=== PATIENT | male | born 1960 | race Caucasian/White ===

== ENCOUNTER 2020-08-09 17:53 | Emergency (ER) | payer BC, SELFPAY ==
[2020-08-09 17:53] VITALS: BP 166/77; PULSE 74; RESP 17; TEMP 36.6; O2SAT 96; BMI 16.4
[2020-08-09 18:22] VITALS: BP 138/89; PULSE 74; O2SAT 97
--- NOTE | 2020-08-09 18:24 | CT_ITS ---
PROCEDURE: CT HEAD/BRAIN WO CON CLINICAL INDICATION: Lac Head injury with headache/pain, contusion, abrasion or hematoma COMPARISON: No exams were available for comparison TECHNIQUE: Axial images obtained. All CT scans at the facility use one or more dose reduction, viz: automated exposure control, ma/kV adjustment per patient size (including targeted exams where dose is matched to indication, i.e. head), or iterative reconstruction technique. FINDINGS: No midline shift, mass effect, intracranial hemorrhage, hydrocephalus, or extra-axial fluid collection is evident. There is generalized atrophy with hypoattenuation of the periventricular white matter consistent with microangiopathic changes. The calvarium has an unremarkable appearance. Soft tissue swelling noted in the frontal region of the scalp . No mastoid effusion. There is an air-fluid level in the left maxillary sinus.. There is mucosal thickening of the maxillary sinus on the left and of the ethmoid sinuses centrally. IMPRESSION: 1. No acute intracranial findings. 2. Right frontal scalp hematoma. 3. Air-fluid level left maxillary sinus age and etiology indeterminate Dictated by: Eduardo Lopez MD 08/10/2020 09:02 Eduardo Lopez MD in [place] 08/10/2020 09:02
--- NOTE | 2020-08-09 18:28 | PC.NURSE ---
Pt's comes to desk and wants to know what is taking so long that they had been here for over an hour . At this time the pt had been registered for 28 mins. Explained to pt's that there were other people in here. Pt had stated upon arrival that he just needed stitched up. Explained that having his head scanned was ideal due to pt being on blood thinners. Pt's says go ahead and do it and we will just stay half the night and walks off.
--- NOTE | 2020-08-09 18:38 | HMH.EDGENADL ---
ED Disposition Clinical Impression: Scalp laceration Qualifiers: Encounter type: initial encounter Qualified Code(s): S01.01XA - Laceration without foreign body of scalp, initial encounter Disposition: Home, Self-Care Condition on Discharge: Good Instructions: DI for Laceration Repair -- [place], DI for Closed Head Injury Additional Instructions: Additional instructions for SCALP LACERATION: Clean the wound daily with soap and water. You may shower and shampoo your hair. Avoid submerging the wound. No swimming.. Apply a thin film of antibiotic ointment such as neosporin, polysporin, or triple antibiotic daily after showering. Be careful when combing or brushing hair so that you so not snag the dahiana with a comb or brush. See your primary care physician or return to the [facility] in 7 days for staple removal. The [facility] is open 9 AM to 9 PM, 7 days a week. Return if any signs of infection including increasing pain, pus drainage, swelling, redness, red streaks, or fever. Additional instructions for HEAD INJURY: See your physician as soon as possible for further evaluation. Return immediately if severe headache, vomiting, problems with vision or speech, numbness or weakness of the extremities, or severe neck pain. Referrals: Riley Moreno [Primary Care Provider] - - Critical Care Critical Care Time: No Attestation: On 08/09/20, the high probability of a clinically significant, sudden or life threatening deterioration of the following system(s) required my full and direct attention, intervention and personal management. The time I documented below is in addition to time spent performing reported procedures but includes the following listed in this critical care notation. Medical Decision Making - Yovani Inquiry Pt receiving controlled substance: No Vital Signs: 08/09/20 17:53 08/09/20 18:22 Temperature 97.9 F Temperature Source Oral Pulse Rate [Right Brachial] 74 74 Respiratory Rate 17 Blood Pressure [Right Arm] 166/77 H 138/89 Blood Pressure Mean [Right Arm] 106 105 Blood Pressure Source [Right Arm] Automatic Cuff Automatic Cuff Blood Pressure Position [Right Arm] Sitting Sitting 02 Sat by Pulse Oximetry 96 97 Oxygen Delivery Method Room Air Room Air Orders (Tests/Meds): ED MEDICATIONS Discontinued Medications Generic Name Dose Route Start Last Admin Trade Name Freq PRN Reason Stop Dose Admin Tetanus/Reduced Diphtheria/Acell Pertussis 0.5 ml 08/09/20 19:34 08/09/20 19:36 Tet/Diphth/Pert-Adult 0.5ml Syringe IM 08/09/20 19:35 0.5 ml .ONCE ONE Administration ORDERS Category Date Time Status CT head/brain wo con Stat Cat Scan 08/09/20 18:24 Taken - CT Data CT Scan: Head Time Received: 19:05 ([facility] fax) ED CT Reviewed: Yes: I have viewed the radiologist's interpretation Findings Narrative: Right periorbital soft tissue swelling No hemorrhage mass-effect or midline shift Acute air-fluid level noted within the left maxillary sinus (The patient has no facial trauma or sinus symptoms - JR) General Adult HPI - General Chief complaint: Wound/Laceration Stated complaint: Head laceration Time Seen by Provider: 08/09/20 18:38 Mode of Arrival: Ambulatory Limitations: No Limitations Description of Symptoms (Recalled from ER Triage Doc. by RN): Patient reports he walked into the corner of the bucket of a front end load and cut his head. Patient denies any loss of conciousness. 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 He is on aspirin and Plavix. No loss of consciousness. No headache or neck pain. No visual disturbance or vomiting. No other injuries. Uncertain when his last tetanus shot was. - Related Data Home Medications Medication Instructions Recorded Confirmed Clopidogrel Bisulfate [Plavix] 75
[2020-08-09 19:55] VITALS: BP 129/78; PULSE 72; RESP 18; TEMP 36.7
== END 2020-08-09 19:45 | disposition home or self-care (01) ==
PROVIDERS: Emergency Provider Emergency Medicine; PCP Family Medicine
DX: S01.01XA Laceration without foreign body of scalp, initial encounter (principal); W22.09XA Striking against other stationary object, initial encounter; I25.10 Atherosclerotic heart disease of native coronary artery without angina pectoris; I25.2 Old myocardial infarction; Z79.899 Other long term (current) drug therapy; Z23 Encounter for immunization
CPT/HCPCS: 12001; 70450; 90471; 90715; 99282

== ENCOUNTER 2020-08-17 14:26 | Emergency (ER) | payer BC, SELFPAY ==
[2020-08-17 14:32] VITALS: BP 140/88; PULSE 61; RESP 18; TEMP 36.7; O2SAT 96; BMI 16.6
[2020-08-17 14:35] VITALS: BP 140/88; PULSE 61; RESP 18; TEMP 36.7; O2SAT 96
== END 2020-08-17 14:36 | disposition home or self-care (01) ==
PROVIDERS: Emergency Provider Nurse Practitioner; PCP Family Medicine
DX: S01.01XD Laceration without foreign body of scalp, subsequent encounter (principal)

== ENCOUNTER 2021-02-07 21:39 | Inpatient (IN) | payer MEDICARE, BC, SELFPAY ==
[2021-02-07 21:49] VITALS: BMI 16.6
--- NOTE | 2021-02-07 21:49 | XR_ITS ---
PROCEDURE INFORMATION: Exam: XR Chest Exam date and time: 02/07/2021 9:49 PM Age: 60 years old Clinical indication: Chest pressure; Prior surgery; Surgery date: 6+ months; Patient HX: Open heart SX, chest pain, elevated troponin TECHNIQUE: Imaging protocol: XR of the chest. Views: 2 views. COMPARISON: CR CXR CHEST(2 VIEWS-NOT PORTABLE) 05/01/2014 12:56 PM FINDINGS: Lungs: Stable diffuse increased interstitial markings without associated focal consolidation or vascular congestion. Pleural spaces: Bilateral pleural effusions greater on the right than the left demonstrated. Heart/Mediastinum: Unremarkable. No cardiomegaly. Bones/joints: Stable degenerative osseous changes IMPRESSION: Bilateral pleural effusions greater on the right than the left demonstrated.
--- NOTE | 2021-02-07 21:49 | ECG_ITS ---
APPROVED REPORT Exam: Resting ECG HR:104 bpm ECG Measurements Heart Rate 104 AXES OK 136 P 77 QRSd 98 QRS 88 QT 392 T -32 QTc 515 Conclusion Sinus tachycardia Left ventricular hypertrophy with repolarization abnormality Abnormal ECG Electronically signed by : Viraj Damon, 02/08/2021 17:44:17
[2021-02-07 22:01] VITALS: BP 132/94; PULSE 67; RESP 26; TEMP 37.1; O2SAT 78; BMI 16.6
[2021-02-07 22:01] LABS: Basophils % 0.2 % (0.1-2.0); Hematocrit 36.7 % (42.0-52.0); Lymphocytes # 1.1 K/mm3 (0.7-4.5); Lymphocytes % 5.2 % (10-50); Mean Corpuscular HGB Conc 29.9 g/dL (31.8-35.4); Mean Corpuscular Hemoglobin 26.7 pg (27.0-31.2); Mean Corpuscular Volume 89.3 fl (80-94); Mean Platelet Volume 7.5 fl (7.4-10.4); Monocytes # 1.2 K/mm3 (0.1-1.0); Monocytes % 5.6 % (1.7-9.3); Neutrophils # 18.6 K/mm3 (1.8-7.8); Platelet Count 589 K/mm3 (142-424); Red Blood Count 4.11 M/mm3 (4.60-6.20); Red Cell Distribution Width 15.8 % (11.5-17.5)
[2021-02-07 22:05] LABS: White Blood Count 20.9 K/mm3 (4.8-10.8)
[2021-02-07 22:07] LABS: MANUAL DIFFERENTIAL MANUAL DIFFERENTIAL (MANUAL DIFF)
[2021-02-07 22:11] LABS: Microscopic, Urine URINE MICROSCOPIC (MICROSCOPIC)
[2021-02-07 22:12] LABS: Anion Gap 24.7 mEq/L (5-15); Blood Urea Nitrogen 31 mg/dl (9-20); Calcium 8.7 mg/dl (8.4-10.2); Carbon Dioxide 25 mmol/L (22.0-30.0); Chloride 87 mmol/L (98-107); Creatinine Clearance Estimated 25 mL/min (50-200); Estimated Glomerular Filt Rate 32 ml/min (>60); GFR (African American) 39 ML/MIN (>60); Glucose 85 mg/dl (74-100); Potassium 4.7 mmoL/L (3.5-5.1); Sodium 132 mmol/L (136-145)
[2021-02-07 22:14] LABS: Creatine Kinase 246 U/L (55-170)
[2021-02-07 22:14] LABS: Appearance,Urine SL CLOUDY (Clear); Blood, Urine 2+ (Negative); Color,Urine YELLOW (Yellow); Glucose,Urine (UA) Negative (Negative); Ketones,Urine TRACE (Negative); Leukocyte Esterase,Urine Negative (Negative); Nitrate,Urine Negative (Negative); Protein,Urine 2+ (Negative); Specific Gravity, Urine >= 1.030 (1.005-1.030)
[2021-02-07 22:16] LABS: Ethyl Alcohol < 10 mg/dl (0-10)
[2021-02-07 22:16] LABS: Bilirubin,Urine Negative (Negative)
--- NOTE | 2021-02-07 22:16 | XR_ITS ---
PROCEDURE INFORMATION: Exam: XR Pelvis Exam date and time: 02/07/2021 10:16 PM Age: 60 years old Clinical indication: Injury or trauma; Fall; Blunt trauma (contusions or hematomas); Does not apply; Pelvic region TECHNIQUE: Imaging protocol: XR pelvis. Views: 1 or 2 view. COMPARISON: No relevant prior studies available. FINDINGS: Tubes, catheters and devices: A [place] catheter is demonstrated. Bones/joints: No evidence of acute fracture or dislocation. Soft tissues: Unremarkable. Intraperitoneal space: Nonspecific pelvic calcifications. Vasculature: Mild atherosclerotic vascular changes. IMPRESSION: No evidence of acute fracture or dislocation.
--- NOTE | 2021-02-07 22:16 | HMH.EDWEAK ---
ED Disposition Clinical Impression: Non-STEMI (non-ST elevated myocardial infarction), Tobacco use, Low body mass index (BMI), IVA (acute kidney injury), Transaminasemia, SIRS (systemic inflammatory response syndrome) Hypothyroidism Qualifiers: Hypothyroidism type: acquired Qualified Code(s): E03.9 - Hypothyroidism, unspecified Disposition: Admitted As Inpatient Condition on Discharge: Serious - Critical Care Critical Care Time: No Attestation: On 02/07/21, the high probability of a clinically significant, sudden or life threatening deterioration of the following system(s) required my full and direct attention, intervention and personal management. The time I documented below is in addition to time spent performing reported procedures but includes the following listed in this critical care notation. Medical Decision Making - Medical Records Medical records reviewed: Yes: I reviewed the patient's medical records. - Yovani Inquiry Pt receiving controlled substance: No Vital Signs: 02/07/21 22:01 02/07/21 23:00 02/07/21 23:15 Temperature 98.7 F Temperature Source Oral Pulse Rate 98 H 100 H Pulse Rate [Right] 67 Respiratory Rate 26 H 16 Blood Pressure 142/85 H Blood Pressure [Right Arm] 132/94 H Blood Pressure Mean 104 Blood Pressure Mean [Right Arm] 106 Blood Pressure Source [Right Arm] Automatic Cuff Blood Pressure Position [Right Arm] Sitting 02 Sat by Pulse Oximetry 78 L 97 84 L Oxygen Delivery Method Room Air 02/07/21 23:30 Temperature Temperature Source Pulse Rate Pulse Rate [Right] Respiratory Rate 18 Blood Pressure 131/87 Blood Pressure [Right Arm] Blood Pressure Mean 101 Blood Pressure Mean [Right Arm] Blood Pressure Source [Right Arm] Blood Pressure Position [Right Arm] 02 Sat by Pulse Oximetry 97 Oxygen Delivery Method - Lab Data Lab results reviewed: Yes: I reviewed the patient's lab results. Lab Results 02/07/21 21:15: Plasma/Serum Alcohol < 10 02/07/21 21:15: Total Creatine Kinase 246 H 02/07/21 21:50: WBC 20.9 H*, RBC 4.11 L, Hgb 11.0 L, Hct 36.7 L, MCV 89.3, MCH 26.7 L, MCHC 29.9 L, RDW 15.8, Plt Count 589 H, MPV 7.5, Neut % (Auto) 89.0 H, Lymph % (Auto) 5.2 L, Cameron % (Auto) 5.6, Eos % (Auto) 0.0 L, Baso % (Auto) 0.2, Neut # (Auto) 18.6 H, Lymph # (Auto) 1.1, Cameron # (Auto) 1.2 H, Eos # (Auto) 0.0, Baso # (Auto) 0.0, Total Counted 100, Neutrophils % (Manual) 88 H, Lymphocytes % (Manual) 6 L, Monocytes % (Manual) 6, Platelet Estimate Slight increase, Hypochromasia 1+, Anisocytosis 1+ 02/07/21 21:50: Sodium 132 L, Potassium 4.7, Chloride 87 L, Carbon Dioxide 25, Anion Gap 24.7 H, BUN 31 H, Creatinine 2.10 H, Estimated Creat Clear 25, Estimated GFR 32 L, Est GFR ( Amer) 39 L, Glucose 85, Calcium 8.7, Troponin I 6.54 H 02/07/21 21:50: PT 17.5 H, INR 1.53 H, APTT 25.1 02/07/21 21:55: Total Bilirubin 1.2, Direct Bilirubin 0.7 H, Conjugated Bilirubin 0.0, Indirect Bilirubin 0.5, Unconjugated Bilirubin 0.5, AST 1370 H*, ALT 598 H*, Alkaline Phosphatase 214 H, Total Protein 6.8, Albumin 4.0 02/07/21 21:55: Thyroxine (T4) 8.6, Salicylates < 1.0 L, Acetaminophen < 10 L 02/07/21 22:01: Specimen Source R/r, O2 % R/a, ABG pH 7.46 H, ABG pCO2 30.9 L, ABG pO2 79.5 L, ABG HCO3 21.6 L, ABG Total CO2 22.6 L, ABG O2 Saturation 96, ABG Base Excess -2.1, Eduardo Test Y 02/07/21 22:05: Urine Opiates Screen Negative, Urine Methadone Screen Negative, Ur Barbituates Screen Negative, Ur Phencyclidine Scrn Negative, Ur Amphetamines Screen Negative, U Benzodiazepines Scrn Negative, Urine Cocaine Screen Negative, U Marijuana (THC) Screen Negative 02/07/21 22:05: Urine Color Yellow, Urine Appearance Sl cloudy, Urine pH 5.0, Ur Specific [place] >= 1.030, Urine Protein 2+, Urine Glucose (UA) Negative, Urine Ketones Trace, Urine Blood 2+, Urine Nitrate Negative, Urine Bilirubin Negative, Urine Urobilinogen 1.0, Ur Leukocyte Esterase Negative, Urine RBC Occasional, Urine WBC 5-10, Ur Squamous Epith Ce
[2021-02-07 22:17] LABS: ABG Base Excess -2.1 mmol/L (-2.4-2.3); ABG HCO3 21.6 mmhg (22.0-26.0); ABG Oxygen Saturation 96 % (90-100); ABG PCO2 30.9 mmhg (35.0-45.0); ABG PH 7.46 mmol/L (7.35-7.45); ABG PO2 79.5 mmhg (80-100); ABG TCO2 22.6 mmhg (23-27); Oxygen R/A %
[2021-02-07 22:18] LABS: Allen's Test Y; Source R/R
[2021-02-07 22:25] LABS: Amphetamine/Metha Screen,Urine Negative ng/ml (<1000); Benzodiazepines Screen,Urine Negative ng/ml (<200)
[2021-02-07 22:26] LABS: Barbiturates Screen,Urine Negative ng/ml (<200)
[2021-02-07 22:27] LABS: Cannabinoid Screen,Urine Negative ng/ml (<50); Cocaine Screen,Urine Negative ng/ml (<300)
[2021-02-07 22:28] LABS: Methadone Screen,Urine Negative ng/ml (<300)
[2021-02-07 22:29] LABS: Adenovirus,PCR Not Detected (NotDetected); Bordetella Pertussis Not Detected (NotDetected); Coronavirus 19, PCR Not Detected (NotDetected); Coronavirus 229E Not Detected (NotDetected); Coronavirus NL63 Not Detected (NotDetected); Coronavirus OC43 Not Detected (NotDetected); Coronovirus HKU1,PCR Not Detected (NotDetected); Human Metapneumovirus Not Detected (NotDetected); Influenza A, PCR Not Detected (NotDetected); Influenza AH1, 2009 Not Detected (NotDetected); Influenza AH1, PCR Not Detected (NotDetected); Influenza AH3,PCR Not Detected (NotDetected); Influenza B, PCR Not Detected (NotDetected); Parainfluenza 1, PCR Not Detected (NotDetected); Parainfluenza 2, PCR Not Detected (NotDetected); Parainfluenza 3, PCR Not Detected (NotDetected); Parainfluenza 4, PCR Not Detected (NotDetected); Respiratory Syncytial Virus Not Detected (NotDetected); Rhinovirus/Enterovirus Not Detected (NotDetected)
[2021-02-07 22:29] LABS: Opiate Screen,Urine Negative ng/ml (<300); Phencyclidine Screen,Urine Negative ng/ml (<25)
--- NOTE | 2021-02-07 22:29 | PC.NURSE ---
patient is refusing radiology studies. irma yancey rn spoke to patient. patient will sign AMA form.
[2021-02-07 22:30] LABS: Chlamydophila Pneumoniae, PCR Not Detected (NotDetected); Mycoplasma Pneumoniae, PCR Not Detected (NotDetected)
--- NOTE | 2021-02-07 22:30 | PC.NURSE ---
I spoke with pt and he and his refuse any x-rays or CT's, the and pt states they have had all the x-rays he needs.
[2021-02-07 22:31] LABS: Troponin I 6.54 ng/ml (0.00-0.034)
[2021-02-07 22:36] LABS: Alkaline Phosphatase 214 U/L (38-126); Bilirubin,Direct 0.7 mg/dl (0.0-0.4); Bilirubin,Indirect 0.5 mg/dL (0.0-0.9); Bilirubin,Total 1.2 mg/dl (0.2-1.3); Bilirubin,Unconjugated 0.5 mg/dL (0.0-1.1); Total Protein,Serum 6.8 g/dl (6.3-8.2)
[2021-02-07 22:41] LABS: Amorphous Sediment,Urine 1+ /lpf; Bacteria,Urine 2+ /lpf; RBC,Urine Occasional #/hpf (0-3)
[2021-02-07 22:42] LABS: Alanine Aminotransferase 598 U/L (12-78)
--- NOTE | 2021-02-07 22:42 | PC.NURSE ---
critical troponin came back. sydney grajeda and dr. reddy spoke to the patient and family. they agreed to radiology studies and to be admitted for consult with dr. rain in the morning. rad at bedside at this time.
[2021-02-07 22:43] LABS: Aspartate Amino Transferase 1370 U/L (17-59)
[2021-02-07 22:50] LABS: Lactic Acid 10.4 mmol/L (0.7-2.1)
[2021-02-07 23:00] VITALS: BP 142/85; PULSE 98; O2SAT 97
[2021-02-07 23:01] LABS: Lymphocytes % 6 % (10-50); Monocytes % 6 % (2-9); Neutrophils % 88 % (42-76); Platelet Estimate Slight Increase; Total Cells Counted 100
[2021-02-07 23:03] LABS: Anisocytosis 1+; Hypochromasia 1+
[2021-02-07 23:15] VITALS: PULSE 100; RESP 16; O2SAT 84
--- NOTE | 2021-02-07 23:17 | PC.NURSE ---
I spoke with the pt and his regarding his high Troponin, they agreed to X-rays, but continues to refuse the CT's
--- NOTE | 2021-02-07 23:28 | PC.NURSE ---
speaking to dr. rain at this time.
[2021-02-07 23:30] VITALS: BP 131/87; RESP 16; RESP 18; O2SAT 97
--- NOTE | 2021-02-07 23:46 | PC.NURSE ---
Dr Rivera speaking with Dr Damon
[2021-02-07 23:47] LABS: Activated Partial Thrombo Time 25.1 seconds (22.8-30.6); INR 1.53 (0.9-1.1); Prothrombin Time 17.5 seconds (10.1-12.5)
[2021-02-07 23:48] LABS: Acetaminophen < 10 ug/ml (10-30); Salicylate < 1.0 mg/dL (2.0-20.0)
[2021-02-08] VITALS (22 sets, daily range): BP systolic 118–152; BP diastolic 59–105; PULSE 78–94; RESP 16–23; TEMP 36.6–37.2; O2SAT 91–100; BMI 18.6
--- NOTE | 2021-02-08 | IR_ITS ---
APPROVED REPORT Patient Location: Inpatient PROCEDURES Right heart catheterization Left heart catheterization Left ventriculogram Selective coronary angiogram Left internal mammary angiography Selective engagement of saphenous vein graft to the circumflex artery Selective engage in the saphenous vein graft to the right coronary Bilateral selective renal angiography INDICATION Acute non-ST elevation myocardial infarction, Bilateral pleural effusions, Systolic congestive heart failure, Coronary artery disease with history of coronary bypass surgery x2, Chronic renal failure creatinine 2.1, Suspect renal artery stenosis Informed consent was obtained prior to the procedure. COMPLICATIONS NONE Estimated Blood Loss: LESS THAN 10 ML TECHNIQUE One percent lidocaine used to anesthetize the right groin. The right femoral artery was accessed via the Seldinger technique and a 5 [place] sheath was placed in the right femoral artery. A JL 4, JR4 catheter were used to perform left heart catheterization, left ventriculogram selective coronary angiography as well as selective engagement of the 2 vein grafts and the left internal mammary artery. Because of the severe diffuse coronary disease and the elevated creatinine the JR4 catheter was used to selectively intubate each renal artery. 1% lidocaine was used anesthetize the right groin and the right femoral vein was accessed via the Salinger technique. A 7 [place] sheath was placed in the right femoral vein. A [place] catheter was used to perform right heart catheterization with saturations obtained in the right atrium and pulmonary artery. At the end the procedure the apparatus was removed the patient transferred to the postop holding in stable condition for sheath removal ANGIOGRAPHIC RESULTS The left main artery Normal The left anterior descending artery Ostially occluded The circumflex artery Is nondominant and has no obtuse marginal arteries. A large Kugel collateral collateralizes the distal dominant right coronary artery The right coronary artery Dominant and ostially occluded The ROWE ventriculogram reveals Severe left ventricular dilatation with severe left ventricular dysfunction estimated at 20%. The inferior wall is akinetic the anterior wall is hypokinetic The left ventricular end-diastolic pressure 10 to 15 mmHg The left internal mammary artery is a large graft which supplies the LAD with a large T graft supplying a diagonal artery. The saphenous vein graft to the right coronary artery is ostially occluded The saphenous vein graft to the circumflex artery is ostially occluded Right atrial pressure has a large Y descent with a mean pressure of 15 Pulmonary artery pressure 35/25 Pulmonary occlusion pressure 16 Right atrial saturation 40% Pulmonary artery saturation 42% The right renal artery is singular with an ostial 10 to 20% stenosis The left renal artery is ostially occluded IMPRESSION Coronary disease as described above Left ventricular dysfunction as described above Mildly elevated pulmonary artery pressures which is actually euvolemic for the degree of patient's LV dysfunction Chronically occluded left renal artery as described above PLAN 1. Medical management for coronary disease 2. Patient may be a candidate for an AICD. 3. Recommend abstinence from alcohol 4. Standard therapy for systolic heart failure 5. Consideration for LifeVest although patient may not be a candidate due to purported alcohol abuse Electronically signed by : Lonnie Suero, 02/08/2021 15:03:53
[2021-02-08 00:04] LABS: T4 (Thyroxine) 8.6 ug/dl (5.53-11.0)
[2021-02-08 00:18] LABS: Thyroid Stimulating Hormone 9.13 uIU/mL (0.465-4.68)
--- NOTE | 2021-02-08 01:18 | PC.NURSE ---
patient up to floor via wheelchair.
[2021-02-08 02:24] LABS: Reflex Lactic Add Lactic Reflex
--- NOTE | 2021-02-08 02:45 | PC.NURSE ---
notified of critical lab values troponin 8.79 and lactic 8.1. No new orders.
[2021-02-08 02:47] LABS: Lactic Acid Follow Up (RFLX 1) 8.1 mmol/L (0.7-2.1)
[2021-02-08 02:47] LABS: Troponin I 8.79 ng/ml (0.00-0.034)
--- NOTE | 2021-02-08 03:34 | PC.NURSE ---
Pt is currently resting in bed. No c/o chest pain. Pt is currently NPO and has had a shower. VSS. Pt is NSR on telemetry. No concerns noted at this time. Will continue to monitor.
[2021-02-08 04:34] LABS: Reflex Lactic (2 hrs) Add Lactic Reflex
[2021-02-08 05:05] LABS: Lactic Acid Follow up (RFLX 2) 4.4 mmol/L (0.7-2.1)
[2021-02-08 06:08] LABS: Albumin Level 3.1 g/dl (3.5-5.0); Albumin/Globulin Ratio 1.3 (1.1-1.8); Alkaline Phosphatase 164 U/L (38-126); Anion Gap 11.4 mEq/L (5-15); Bilirubin,Total 1.1 mg/dl (0.2-1.3); Blood Urea Nitrogen 39 mg/dl (9-20); Carbon Dioxide 29 mmol/L (22.0-30.0); Chloride 92 mmol/L (98-107); Chol/HDL Ratio 3.1 (1-3.5); Cholesterol 117 mg/dl (140-200); Creatinine Clearance Estimated 30 mL/min (50-200); Estimated Glomerular Filt Rate 34 ml/min (>60); GFR (African American) 41 ML/MIN (>60); Globulin 2.4 g/dL (1.3-3.2); Glucose 134 mg/dl (74-100); HDL Cholesterol 38 mg/dl (40-60); Magnesium 2.1 mg/dl (1.6-2.3); Potassium 4.4 mmoL/L (3.5-5.1); Sodium 128 mmol/L (136-145); Total Protein,Serum 5.5 g/dl (6.3-8.2); Triglycerides 112 mg/dl (30-150); VLDL Cholesterol 22 mg/dL (0-40)
[2021-02-08 06:15] LABS: Alanine Aminotransferase 1034 U/L (12-78)
[2021-02-08 06:18] LABS: Direct LDL Cholesterol 51.41 mg/dL (100-129)
--- NOTE | 2021-02-08 08:00 | CA_ITS ---
APPROVED REPORT EXAM: Comprehensive 2D, Doppler, and color-flow Echocardiogram Organizational Research Consultant: Amy Mcbride CRT Ht: 5 ft 7 in Wt: 106lbs BSA: 1.54 BP: 131/87 mmHg Indications: CAD, smoking, CABG x 2, stents, smoker, alcohol, skin ca, chemo/radation 2D Dimensions LVOT 2.04 cm (M/F) 1.5-2.5 LA Volume 60.60 mL LA Volume Index 39.407935 mL/m2 (M/F) 16-34 M-Mode Dimensions RVDd 3.09 cm (0.9-2.6) LA Diam 4.13 cm (1.9-4.0) LVDd 5.38 cm (3.5-5.7) Ao Diam 4.38 cm (2.0-3.7) LVDs 4.88 cm (3.5-5.7) IVSd 1.72 cm (0.6-1.1) PWd 0.64 cm (0.6-1.1) EF (Teich) 20.30% FS 9.30% EDV (Teich) 140.10 mL TAPSE 1.45 (<1.7) ESV (Teich) 111.70 mL LV Diastology E Decel Time 150.00 (160-240 msec) E/A Ratio 1.09 MED E' 3.50 (< 7 cm/sec) MED A' 4.90 cm/s E'/MED E' Ratio 18.31 (>14) LAT E' 4.60 (<10 cm/sec) LAT A' 6.50 cm/s E/LAT E' Ratio 13.93 (>14) Aortic Valve AI PHT 427.00 ms AO Peak GR. 6.70 mmHg Mitral Valve MV E Max Roberto. 64.00 (40-130 cm/s) MV A Velocity 59.00 (40-130 cm/s) E/A Ratio 1.09 MV Decel. Time 150.00 (160-240 ms) MV PHT 44.00 ms Pulmonary Valve PV Peak Velocity 115.00 (50-150 cm/s) Tricuspid Valve TR P. Velocity 264.00 cm/s RAP Estimate 10.00 mmHg RVSP 38.00 mmHg Left Ventricle Left atrium is moderately enlarged, left ventricle is mildly dilated, severely slow ventricular systolic function, visually estimated ejection fraction 25%, left ventricle is globally hypokinetic, there is abnormal septal motion. Diastolic parameters are inconclusive. Doppler evidence of low cardiac output state seen. Right Ventricle Right atrium and right ventricle mildly enlarged with normal contractility. Aortic Valve Aortic valve is thickened and calcified without aortic stenosis, there is moderate aortic insufficiency. Mitral Valve Mitral valve leaflets are minimally thickened, there is mild mitral regurgitation. Tricuspid Valve Tricuspid valve is grossly normal, there is moderate tricuspid regurgitation, calculated right ventricular systolic pressure 38 mmHg. Pulmonic Valve Pulmonic valve is poorly visualized. Great Vessels Aortic root is normal size. Inferior vena cava is dilated without significant inspiratory collapse. Pericardium No significant pericardial effusion noted. Conclusion 1. Biatrial enlargement, mildly dilated left ventricle, mild concentric left ventricular hypertrophy, visually estimated ejection fraction 25%, left ventricle is globally hypokinetic, there is abnormal septal motion, Doppler evidence of low cardiac output state. 2. Moderate aortic, mild mitral and moderate tricuspid regurgitation, calculated right ventricular systolic pressure 38 mmHg, inferior vena cava is dilated without significant inspiratory collapse with 3. No significant pericardial effusion noted. Electronically signed by : Danny Hatch, 02/08/2021 14:21:55
--- NOTE | 2021-02-08 08:26 | HMH.HP ---
*Admission Date: 02/08/21 *Chief complaint: Syncope, cardiac disease, history CHF *History of present illness: 60-year-old white male with long history of heart disease, with 2 different bypass procedures at [facility] many years ago as well as a history of CHF with possibly recent exacerbation. His reports that 3 or 4 weeks ago he became extremely breathless, orthopnea and edema were noted, he saw cardiology at [facility]-he sees . Christinerohan May-one of the nurse practitioners there-and his medicines were adjusted and is felt much better. However, 2 nights ago he went out to his garage-he has an extensive large garage in the back of his property that he has outfitted with a refrigerator, couch and lots of other items and tends to spend days and nights in the garage tinkering on old cars and trucks as well as drinking heavily. Its not unusual for his not to see him for 2 or 3 days. However, yesterday after some of their cattle had gotten loose granddaughter went to look for him and found him unconscious in the garage. He was brought to the emergency department. He denied chest pain but reports he had been complaining of chest pain on Monday. He had no worsening edema. He was found to have significant metabolic abnormalities with hyponatremia, elevated transaminase levels, elevated creatinine-unsure about baseline, and troponin elevations. Diagnosed with non-STEMI given his history, presentation and troponin elevations and admitted to hospital for further evaluation. This morning he feels pretty good is alert, pleasant and talkative. He and his have very discordant views of his alcohol use and recent medication issues. [facility] History I have reviewed the patient's past medical history: Yes Medical History: Reports:: Congestive Heart Failure, Coronary Artery Disease, Hyperlipidemia, Hypertension, Myocardial Infarction Denies:: Cancer, Diabetes Mellitus Type 1, Diabetes Mellitus Type 2, Internal Pacemaker, Lung Disease, MRSA, Seizures *Have you ever received a pneumonia vaccine?: No *Have you received a flu vaccine this season?: No Other Surgeries: No: Pacemaker Amputation: No Fractures: No - *Social History Smoking Status: Current every day smoker Tobacco Type: cigarettes # Packs/Day (cigarettes): 1 Alcohol Intake: current Alcohol Intake Frequency:: 3 or more drinks per day *Occupational Status:: disabled *Travel in the last 8 weeks: None Family Hx:: Unable to obtain Review of Systems - Review of Systems Review of systems:: pertinent systems reviewed and negative unless documented below Currently patient denies chest pain or shortness of air. He does report a lot of back pain in the hospital bed. Otherwise 10 point review of systems negative. - *Neurologic Reports weakness, Denies abnormal speech, Denies localized weakness, Denies headache(s), Denies seizure-like activity Meds Home Medications Medication Instructions Recorded Confirmed Type Clopidogrel Bisulfate [Plavix] 75 mg PO DAILY 12/27/17 02/08/21 History Isosorbide Mononitrate [Isosorbide 120 mg PO DAILY 12/27/17 02/08/21 History Mononitrate ER] Levothyroxine Sodium 50 mcg PO DAILY 12/27/17 02/08/21 History [Levothyroxine 50mcg (0.05mg) Tab] Lovastatin [Altoprev] 40 mg PO DAILY 12/27/17 02/08/21 History Metoprolol Succinate 50 mg PO DAILY 12/27/17 02/08/21 History Ranolazine [Ranexa 500mg ER tablet] 500 mg PO DAILY 12/27/17 02/08/21 History Aspirin [Aspirin 81mg EC Tab] 81 mg PO DAILY 02/07/21 02/08/21 History Cyclobenzaprine HCl 10 mg PO TID PRN 02/07/21 02/07/21 History [Cyclobenzaprine 10mg Tab*] Allergies Allergy/AdvReac Type Severity Reaction Status Date / Time No Known Allergies Allergy Verified 02/08/21 02:08 Exam Vital signs and Labs for Last 24 Hours: Temp Pulse Resp BP Pulse Ox 98.9 F 92 H 23 130/86 97 02/08/21 04:00 02/08/21 04:00 02/08/21 04:00 02/08/21 04:00
--- NOTE | 2021-02-08 09:20 | HMH.PHAVTE ---
[facility] Pharmacy VTE Monitoring - Patient Demographics Admission date: 02/07/21 Report Date: 02/08/21 Time: 09:20 Allergies/Adverse Reactions: Patient Allergies No Known Allergies Allergy (Verified 02/08/21 02:08) Height: 1.7 m Weight: 53.977 kg Patient Problems: Current Active Problems Non-STEMI (non-ST elevated myocardial infarction) (Acute) Hypothyroidism (Acute) Tobacco use (Acute) Low body mass index (BMI) (Acute) IVA (acute kidney injury) (Acute) Transaminasemia (Acute) SIRS (systemic inflammatory response syndrome) (Acute) Coronary atherosclerosis (Acute) Systolic CHF (Acute) Alcohol abuse (Acute) - VTE Risk Labs: VTE Related Lab Results Hgb 11.0 g/dL (14.1-18.0) L 02/07/21 21:50 Hct 36.7 % (42.0-52.0) L 02/07/21 21:50 Plt Count 589 K/mm3 (142-424) H 02/07/21 21:50 PT 17.5 seconds (10.1-12.5) H 02/07/21 21:50 INR 1.53 (0.9-1.1) H 02/07/21 21:50 APTT 25.1 seconds (22.8-30.6) 02/07/21 21:50 BUN 39 mg/dl (9-20) H D 02/08/21 05:25 Creatinine 2.00 mg/dl (0.66-1.25) H 02/08/21 05:25 Estimated Creat Clear 30 mL/min (50-200) 02/08/21 05:25 Was VTE Risk Assessment Performed: Yes VTE Score: 6 VTE Risk Level: Moderate Risk - Prophylaxis VTE Prophylaxis Ordered?: Yes Types of VTE Prophylaxis: TEDS Knee High Location of Applied Device: Bilateral Lower Extremeties
--- NOTE | 2021-02-08 09:37 | PC.NURSE ---
Relayed information to A Shady VARGAS. Per conversation with pt , Dr Mac's nurse states that Dr Suero can do heart cath on pt at [facility] since he can get him in today. also relayed to Dr Heath's nurse that the pt while in the garage pt periodically started his truck. Dr Heath's nurse recommends we check carbon monoxide level. This information was passed on to A Shady, along with pt being agreeable to cath here. No new orders.
--- NOTE | 2021-02-08 10:13 | HMH.CNCARD ---
History of Present Illness Consult date: 02/08/21 Requesting physician: Viraj Damon Consult reason: shortness of breath Chief complaint: SOA History of present illness: This is a 60-year-old white gentleman who was admitted to the hospital after presenting to the emergency department with complaints of shortness of air. He does have a history of coronary artery disease with 2 different coronary artery bypass grafting procedures. He states his first bypass surgery was a 5 vessel bypass and then he had a repeat three-vessel bypass following that. The patient sees Dr. Heath at [facility] and has been seeing Christine May who is a nurse practitioner in that office. He states that he thought he needed about 3 weeks ago because he was extremely short of breath having orthopnea, edema and fatigue. He states that she was concerned about his kidney function and adjusted his diuretics. He states that his symptoms did initially improve after having the medication adjustment. However, the past 2 nights the patient has been out in his garage and has been staying in there for most of the day. The patient has been tapering on old cars and trucks and has been drinking as well. His states prior to this weekend he had not been drinking any alcohol but she does not know how much alcohol he consumed over the weekend as he was in the garage alone. When he is out in his garage it is not unusual for his cannot see him for a day or 2. Yesterday cattle got loose and his granddaughter found him unconscious in the garage. He was brought into the emergency department because of his unconsciousness. He denies any chest pain or pressure. He states that he has been short of breath. This is with exertion and rest. It gets worse the more he exerts himself. It does improve with rest but does not completely resolve. It is associated with orthopnea per the patient report however when I walk in the room the patient is lying flat and asleep. Upon arrival to the emergency department he was found to have hyponatremia, elevated liver function, elevated creatinine and elevated troponin. The patient has a non-ST elevation myocardial infarction. He denies any fever, chills, nausea, vomiting or diarrhea. He states that he still feels really short of breath and very weak and fatigued. He had an echocardiogram and the preliminary showed an ejection fraction of 20% and some valve disease. We are currently awaiting the official report. I asked the patient if he has ever been diagnosed with having LV dysfunction or cardiomyopathy. His states that she is not sure but they have discussed the possibility of a heart transplant or a pacemaker in the future. [facility] History I have reviewed the patient's past medical history: Yes Medical History: Reports:: Atherosclerotic Heart Disease, Congestive Heart Failure, Coronary Artery Disease, Hyperlipidemia, Hypertension, Myocardial Infarction Denies:: Cancer, Diabetes Mellitus Type 1, Diabetes Mellitus Type 2, Internal Pacemaker, Lung Disease, MRSA, Seizures *Have you ever received a pneumonia vaccine?: No *Have you received a flu vaccine this season?: No Other Surgeries: No: Pacemaker Amputation: No Fractures: No - *Social History Smoking Status: Current every day smoker Tobacco Type: cigarettes # Packs/Day (cigarettes): 1 Alcohol Intake: current Alcohol Intake Frequency:: 3 or more drinks per day *Occupational Status:: disabled *Travel in the last 8 weeks: None Family Hx:: Unable to obtain Meds Home Medications Medication Instructions Recorded Confirmed Type Clopidogrel Bisulfate [Plavix] 75 mg PO DAILY 12/27/17 02/08/21 History Isosorbide Mononitrate [Isosorbide 120 mg PO DAILY 12/27/17 02/08/21 History Mononitrate ER] Levothyroxine Sodium 50 mcg PO DAILY 12/27/17 02/08/21 History [Levothyroxine 50mcg (0.05mg) Tab] Lovastatin [Altoprev] 40 mg PO DAILY 12/27/17 02/08/21 History Metoprolol Succinate 50 mg
--- NOTE | 2021-02-08 13:36 | HMH.PHAINT ---
MEDICATION RECONCILIATION COMPLETED ON PATIENT USING EXTERNAL FILL HISTORY, MELVA REPORT, AND MEDICATION LISTS FROM BOTH DR. TALAMANTES'S OFFICE AND DOROTEO GURROLA'S OFFICE. -MITCH HERNÁNDEZD
[2021-02-08 15:24] LABS: ABG PCO2 46.2 mmhg (35.0-45.0)
[2021-02-08 15:25] LABS: ABG PO2 25.5 mmhg (80-100)
[2021-02-08 15:26] LABS: ABG Base Excess 2.6 mmol/L (-2.4-2.3); ABG HCO3 27.8 mmhg (22.0-26.0); ABG TCO2 29.3 mmhg (23-27)
[2021-02-08 15:28] LABS: ABG Oxygen Saturation 40 % (90-100)
[2021-02-08 15:33] LABS: ABG PCO2 41.6 mmhg (35.0-45.0); ABG PH 7.39 mmol/L (7.35-7.45)
[2021-02-08 15:34] LABS: ABG Base Excess -0.4 mmol/L (-2.4-2.3); ABG HCO3 24.6 mmhg (22.0-26.0); ABG Oxygen Saturation 42 % (90-100); ABG PO2 27.9 mmhg (80-100); ABG TCO2 25.8 mmhg (23-27)
[2021-02-08 15:53] LABS: CATHL Arterial O2 SAT 42 % (90-100); CATHL Venous O2 SAT 40 % (75-80)
[2021-02-08 19:42] LABS: Aspartate Amino Transferase 2606 U/L (17-59)
[2021-02-08 19:50] LABS: Calcium 7.4 mg/dl (8.4-10.2)
[2021-02-09] VITALS (8 sets, daily range): BP systolic 140–157; BP diastolic 74–98; PULSE 70–84; RESP 20–22; TEMP 36.3–36.8; O2SAT 87–97; BMI 18.5
--- NOTE | 2021-02-09 05:34 | PC.NURSE ---
room air sat 85%
[2021-02-09 06:32] LABS: Basophils # 0.1 K/mm3 (0-0.2); Basophils % 0.3 % (0.1-2.0); Eosinophils % 0.1 % (0.1-12.0); Hematocrit 32.2 % (42.0-52.0); Hemoglobin 10.4 g/dL (14.1-18.0); Lymphocytes # 1.5 K/mm3 (0.7-4.5); Lymphocytes % 9.3 % (10-50); Mean Corpuscular HGB Conc 32.2 g/dL (31.8-35.4); Mean Corpuscular Hemoglobin 27.5 pg (27.0-31.2); Mean Corpuscular Volume 85.3 fl (80-94); Monocytes # 1.1 K/mm3 (0.1-1.0); Monocytes % 6.5 % (1.7-9.3); Neutrophils % 83.9 % (37.0-80.0); Platelet Count 237 K/mm3 (142-424); Red Blood Count 3.78 M/mm3 (4.60-6.20); Red Cell Distribution Width 16.5 % (11.5-17.5); White Blood Count 16.7 K/mm3 (4.8-10.8)
--- NOTE | 2021-02-09 06:42 | PC.NURSE ---
patient had uneventful night. denied soa, nausea, vomiting, pain or diarrhea. right femoral cath site dressing clean dry and intact. soft to touch, no hematoma present. pedal pulses +. cardiac cath lab manager has shown sr 70s-80s throughout shift.
[2021-02-09 06:59] LABS: MANUAL DIFFERENTIAL MANUAL DIFFERENTIAL (MANUAL DIFF)
[2021-02-09 07:23] LABS: Albumin Level 2.9 g/dl (3.5-5.0); Albumin/Globulin Ratio 1.2 (1.1-1.8); Alkaline Phosphatase 175 U/L (38-126); Bilirubin,Total 0.9 mg/dl (0.2-1.3); Blood Urea Nitrogen 56 mg/dl (9-20); Carbon Dioxide 28 mmol/L (22.0-30.0); Chloride 94 mmol/L (98-107); Creatinine Clearance Estimated 24 mL/min (50-200); Estimated Glomerular Filt Rate 26 ml/min (>60); GFR (African American) 32 ML/MIN (>60); Globulin 2.4 g/dL (1.3-3.2); Glucose 80 mg/dl (74-100); Sodium 129 mmol/L (136-145); Total Protein,Serum 5.3 g/dl (6.3-8.2)
--- NOTE | 2021-02-09 07:26 | HMH.ACPN2 ---
Internal Medicine - PN: Subj *Date: 02/09/21 *Time: 18:19 Interval history: Mr. Davis is remained hemodynamically stable overnight. Remains afebrile. Reviewed labs this morning, still has significant elevation in liver enzymes. No acute cardiac events overnight. Continues to be resistant to LifeVest. Reviewed echo showing severe decrease in EF and cardiomyopathy. Patient's at bedside, updated of plan. Questions answered during morning rounds. Patient denies withdrawal symptoms, nausea or vomiting, diarrhea. Asking to go home. Exam Vital signs and Labs for Last 24 Hours: Temp Pulse Resp BP Pulse Ox 98 F 78 20 149/98 H 94 L 02/09/21 04:00 02/09/21 04:00 02/09/21 04:00 02/09/21 04:00 02/09/21 04:00 Laboratory Results - last 24 hr 02/08/21 05:25: Calcium 7.4 L D, AST 2606 H* D 02/08/21 14:38: ABG O2 Sat (Measured) 42 L, POC VBG O2 Sat (Stephon) 40 L 02/08/21 14:55: O2 % Ra - director of cath lab, ABG pH 7.40, ABG pCO2 46.2 H, ABG pO2 25.5 L, ABG HCO3 27.8 H, ABG Total CO2 29.3 H, ABG O2 Saturation 40 L*, ABG Base Excess 2.6 H 02/08/21 15:00: O2 % Pa - director of cath lab, ABG pH 7.39, ABG pCO2 41.6, ABG pO2 27.9 L, ABG HCO3 24.6, ABG Total CO2 25.8, ABG O2 Saturation 42 L*, ABG Base Excess -0.4 02/09/21 05:44: WBC 16.7 H, RBC 3.78 L, Hgb 10.4 L, Hct 32.2 L, MCV 85.3, MCH 27.5, MCHC 32.2, RDW 16.5, Plt Count 237 D, MPV 9.0, Neut % (Auto) 83.9 H, Lymph % (Auto) 9.3 L, [place] % (Auto) 6.5, Eos % (Auto) 0.1, Baso % (Auto) 0.3, Neut # (Auto) 14.0 H, Lymph # (Auto) 1.5, [place] # (Auto) 1.1 H, Eos # (Auto) 0.0, Baso # (Auto) 0.1 I & O for Last 24 hours: Intake & Output 02/06/21 02/07/21 02/08/21 02/09/21 23:59 23:59 23:59 23:59 Intake Total 1999 Output Total 350 / 350 Balance 1999 -350 / -350 Weight 48.081 kg 54 kg 53.552 kg Microbiology Reports for the Last 24 Hours: Microbiology 02/07/21 22:05 Urine,Catheterized Urine Culture - Preliminary NO GROWTH AFTER 24 HOURS - Constitutional mild distress, thin, cachectic, chronically ill appearing, cooperative - *Routine HEENT Exam Head: Present: normocephalic Eye: Present: EOMI, PERRL ENT: Present: mucous membranes moist Comments: bitemporal wasting - *Routine Neck Exam Present: supple. Absent: lymphadenopathy - *Routine Respiratory Exam Present: rhonchi, wheezes, diminished air movement. Absent: crackles - *Routine Cardiovascular Exam Present: RRR - *Routine Abdominal Exam Present: soft, normoactive bowel sounds, tenderness (Diffuse, worse in right upper quadrant) - *Routine Extremities Exam Absent: cyanosis, clubbing, edema - *Routine Skin Exam Present: warm. Absent: rash - *Routine Neurological Exam Present: alert, oriented X3 Assessment and Plan (1) Alcoholic hepatitis Status: Acute Category: Medical Code(s): K70.10 - Alcoholic hepatitis without ascites Maddrey's discriminant function score of 35.7. Would benefit from steroid administration given poor prognosis with his acute alcoholic hepatitis. Will initiate steroids today. Continue to monitor liver function daily -Initiate Solu-Medrol daily (2) Alcoholic cardiomyopathy Status: Acute Category: Medical Code(s): I42.6 - Alcoholic cardiomyopathy (3) Non-STEMI (non-ST elevated myocardial infarction) Status: Acute Category: Medical Code(s): I21.4 - Non-ST elevation (NSTEMI) myocardial infarction (4) Coronary atherosclerosis Status: Acute Category: Medical Code(s): I25.10 - Atherosclerotic heart disease of [place] coronary artery without angina pectoris (5) Systolic CHF Status: Acute Category: Medical Code(s): I50.20 - Unspecified systolic (congestive) heart failure (6) IVA (acute kidney injury) Status: Acute Category: Medical Code(s): N17.9 - Acute kidney failure, unspecified (7) Low body mass index (BMI) Status: Acute Category: Medical (8) SIRS (systemic inflammatory response syndro
[2021-02-09 07:49] LABS: Alanine Aminotransferase 1315 U/L (12-78); Aspartate Amino Transferase 2011 U/L (17-59)
--- NOTE | 2021-02-09 07:52 | PC.NURSE ---
Dr. Damon notified of Ca 7.0
[2021-02-09 08:54] LABS: INR 1.68 (0.9-1.1); Prothrombin Time 19.1 seconds (10.1-12.5)
--- NOTE | 2021-02-09 09:18 | HMH.PNCARD ---
Subjective Date: 02/09/21 Time: 09:05 Principal diagnosis: nonstemi, systolic CHF Interval history: This is a 60-year-old white gentleman has been to the hospital after coming to the emergency department shortness of breath and found to have a non-ST elevation myocardial infarction. The patient went left and right cardiac catheterization yesterday and he was found to have patent coronary artery disease that did not require any percutaneous intervention. His right heart cath showed mildly elevated pulmonary artery pressures which is actually euvolemic for the degree of LV dysfunction that the patient has. Patient has severe left ventricular dilatation with severe left ventricular dysfunction estimated at 20%. His echocardiogram showed an EF of 25% with moderate aortic regurgitation and moderate tricuspid regurgitation. The patient has severe LV dysfunction is at increased risk for sudden cardiac . We did discuss the need of a LifeVest with the patient. He is not agreeable in wearing this. This morning he denies any chest pain or pressure. He states that his shortness of breath has improved and he is feeling much better. He denies any fever, chills, nausea, vomiting, diarrhea, PND or orthopnea. Exam Vital signs and Labs for Last 24 Hours: Temp Pulse Resp BP Pulse Ox 97.6 F 83 20 146/92 H 97 02/09/21 07:49 02/09/21 07:49 02/09/21 07:49 02/09/21 07:49 02/09/21 07:49 Laboratory Results - last 24 hr 02/08/21 05:25: Calcium 7.4 L D, AST 2606 H* D 02/08/21 14:38: ABG O2 Sat (Measured) 42 L, POC VBG O2 Sat (Stephon) 40 L 02/08/21 14:55: O2 % Ra - analytical lab technician, ABG pH 7.40, ABG pCO2 46.2 H, ABG pO2 25.5 L, ABG HCO3 27.8 H, ABG Total CO2 29.3 H, ABG O2 Saturation 40 L*, ABG Base Excess 2.6 H 02/08/21 15:00: O2 % Pa - analytical lab technician, ABG pH 7.39, ABG pCO2 41.6, ABG pO2 27.9 L, ABG HCO3 24.6, ABG Total CO2 25.8, ABG O2 Saturation 42 L*, ABG Base Excess -0.4 02/09/21 05:41: Sodium 129 L, Potassium 4.0, Chloride 94 L, Carbon Dioxide 28, Anion Gap 11.0, BUN 56 H D, Creatinine 2.50 H D, Estimated Creat Clear 24, Estimated GFR 26 L, Est GFR ( Amer) 32 L D, Glucose 80, Calcium 7.0 L, Total Bilirubin 0.9, AST 2011 H*, ALT 1315 H*, Alkaline Phosphatase 175 H, Total Protein 5.3 L, Albumin 2.9 L, Globulin 2.4, Albumin/Globulin Ratio 1.2 02/09/21 05:44: WBC 16.7 H, RBC 3.78 L, Hgb 10.4 L, Hct 32.2 L, MCV 85.3, MCH 27.5, MCHC 32.2, RDW 16.5, Plt Count 237 D, MPV 9.0, Neut % (Auto) 83.9 H, Lymph % (Auto) 9.3 L, [place] % (Auto) 6.5, Eos % (Auto) 0.1, Baso % (Auto) 0.3, Neut # (Auto) 14.0 H, Lymph # (Auto) 1.5, [place] # (Auto) 1.1 H, Eos # (Auto) 0.0, Baso # (Auto) 0.1 02/09/21 07:50: PT 19.1 H, INR 1.68 H I & O for Last 24 hours: Intake & Output 02/06/21 02/07/21 02/08/21 02/09/21 23:59 23:59 23:59 23:59 Intake Total 1999 240 / 240 Output Total 350 / 350 Balance 1999 -110 / -110 Weight 106 lb 119 lb 0.794 oz 118 lb 1 oz Microbiology Reports for the Last 24 Hours: Microbiology 02/07/21 22:05 Urine,Catheterized Urine Culture - Preliminary NO GROWTH AFTER 24 HOURS Narrative: Echo shows: Conclusion 1. Biatrial enlargement, mildly dilated left ventricle, mild concentric left ventricular hypertrophy, visually estimated ejection fraction 25%, left ventricle is globally hypokinetic, there is abnormal septal motion, Doppler evidence of low cardiac output state. 2. Moderate aortic, mild mitral and moderate tricuspid regurgitation, calculated right ventricular systolic pressure 38 mmHg, inferior vena cava is dilated without significant inspiratory collapse with 3. No significant pericardial effusion noted. LHC shows: The left main artery Normal The left anterior descending artery Ostially occluded The circumflex artery Is nondominant and has no obtuse marginal arteries. A large Kugel collateral collateralizes the distal dominant right coronary artery The right coronary artery D
[2021-02-09 09:53] LABS: Lymphocytes % 7 % (10-50); Monocytes % 8 % (2-9); Neutrophils % 85 % (42-76); Nucleated Red Blood Cells 1; Total Cells Counted 100
[2021-02-09 09:58] LABS: Burr Cells 1+; Microcytosis 1+; Platelet Estimate Normal
[2021-02-09 09:59] LABS: Anisocytosis 1+; Hypochromasia 2+
[2021-02-09 17:32] LABS: Microscopic, Urine URINE MICROSCOPIC (MICROSCOPIC)
[2021-02-09 17:48] LABS: Appearance,Urine CLEAR (Clear); Bilirubin,Urine Negative (Negative); Blood, Urine TRACE-I (Negative); Color,Urine YELLOW (Yellow); Glucose,Urine (UA) Negative (Negative); Ketones,Urine Negative (Negative); Leukocyte Esterase,Urine Negative (Negative); Nitrate,Urine Negative (Negative); Protein,Urine Negative (Negative); Specific Gravity, Urine 1.015 (1.005-1.030); Urobilinogen,Urine 0.2 EU/dl (0.2)
[2021-02-09 18:01] LABS: Bacteria,Urine Trace /lpf; RBC,Urine Occasional #/hpf (0-3); Sperm,Urine 1+ /lpf; Squamous Epithelial Cell,Urine Occasional #/hpf (0-5)
[2021-02-09 19:00] LABS: Albumin Level 3.1 g/dl (3.5-5.0); Albumin/Globulin Ratio 1.1 (1.1-1.8); Alkaline Phosphatase 212 U/L (38-126); Bilirubin,Total 0.9 mg/dl (0.2-1.3); Blood Urea Nitrogen 55 mg/dl (9-20); Calcium 7.2 mg/dl (8.4-10.2); Carbon Dioxide 30 mmol/L (22.0-30.0); Chloride 91 mmol/L (98-107); Creatinine Clearance Estimated 24 mL/min (50-200); Estimated Glomerular Filt Rate 26 ml/min (>60); GFR (African American) 32 ML/MIN (>60); Globulin 2.7 g/dL (1.3-3.2); Glucose 250 mg/dl (74-100); Sodium 128 mmol/L (136-145); Total Protein,Serum 5.8 g/dl (6.3-8.2)
[2021-02-09 19:17] LABS: Alanine Aminotransferase 1191 U/L (12-78); Aspartate Amino Transferase 1266 U/L (17-59)
[2021-02-10] VITALS: BP 132/82; PULSE 74; PULSE 80; RESP 18; TEMP 36.9; O2SAT 98
[2021-02-10 04:00] VITALS: BP 119/71; PULSE 70; PULSE 74; RESP 18; TEMP 36.7; O2SAT 97
[2021-02-10 05:14] VITALS: BMI 18.6
--- NOTE | 2021-02-10 05:34 | PC.NURSE ---
Patient cooperative, pleasant and oriented times 4. Pt required Zofran and Pepcid for nausea/heartburn. Patient resting comfortably most of the shift. Patient did not complain of pain this shift. Patient's medications are locked in the drawer. Patient states I will go home tomorrow and I don't care what anyone says . Will continue to monitor for any acute changes.
[2021-02-10 06:32] LABS: Albumin Level 2.7 g/dl (3.5-5.0); Alkaline Phosphatase 189 U/L (38-126); Bilirubin,Direct 0.7 mg/dl (0.0-0.4); Bilirubin,Indirect 0.1 mg/dL (0.0-0.9); Bilirubin,Total 0.8 mg/dl (0.2-1.3); Bilirubin,Unconjugated 0.1 mg/dL (0.0-1.1)
[2021-02-10 06:33] LABS: Phosphorous 4.7 mg/dl (2.5-4.5)
[2021-02-10 06:34] LABS: Anion Gap 11.1 mEq/L (5-15); Basophils % 0.1 % (0.1-2.0); Blood Urea Nitrogen 59 mg/dl (9-20); Carbon Dioxide 27 mmol/L (22.0-30.0); Chloride 95 mmol/L (98-107); Creatinine Clearance Estimated 31 mL/min (50-200); Estimated Glomerular Filt Rate 36 ml/min (>60); GFR (African American) 44 ML/MIN (>60); Glucose 155 mg/dl (74-100); Hematocrit 31.8 % (42.0-52.0); Hemoglobin 10.1 g/dL (14.1-18.0); Lymphocytes # 0.8 K/mm3 (0.7-4.5); Lymphocytes % 6.3 % (10-50); Mean Corpuscular HGB Conc 31.8 g/dL (31.8-35.4); Mean Corpuscular Hemoglobin 27.4 pg (27.0-31.2); Mean Platelet Volume 8.4 fl (7.4-10.4); Monocytes # 0.7 K/mm3 (0.1-1.0); Monocytes % 5.5 % (1.7-9.3); Neutrophils # 11.1 K/mm3 (1.8-7.8); Neutrophils % 87.9 % (37.0-80.0); Platelet Count 190 K/mm3 (142-424); Potassium 4.1 mmoL/L (3.5-5.1); Red Blood Count 3.69 M/mm3 (4.60-6.20); Red Cell Distribution Width 16.7 % (11.5-17.5); Sodium 129 mmol/L (136-145); White Blood Count 12.6 K/mm3 (4.8-10.8)
[2021-02-10 06:39] LABS: Alanine Aminotransferase 945 U/L (12-78)
[2021-02-10 06:40] LABS: Aspartate Amino Transferase 712 U/L (17-59)
[2021-02-10 07:16] LABS: MANUAL DIFFERENTIAL MANUAL DIFFERENTIAL (MANUAL DIFF)
--- NOTE | 2021-02-10 07:26 | PC.NURSE ---
Dr. Damon notified of Ca 7.0
[2021-02-10 07:48] VITALS: BP 127/84; PULSE 73; RESP 18; TEMP 36.6; O2SAT 94
[2021-02-10 08:00] VITALS: PULSE 70
--- NOTE | 2021-02-10 08:09 | HMH.CNCARD ---
[facility] History Medical History: Reports:: Atherosclerotic Heart Disease, Congestive Heart Failure, Coronary Artery Disease, Hyperlipidemia, Hypertension, Myocardial Infarction Denies:: Cancer, Diabetes Mellitus Type 1, Diabetes Mellitus Type 2, Internal Pacemaker, Lung Disease, MRSA, Seizures *Have you ever received a pneumonia vaccine?: No *Have you received a flu vaccine this season?: No Other Surgeries: No: Pacemaker Amputation: No Fractures: No - *Social History Smoking Status: Current every day smoker Tobacco Type: cigarettes # Packs/Day (cigarettes): 1 Alcohol Intake: current Alcohol Intake Frequency:: 3 or more drinks per day *Occupational Status:: disabled *Travel in the last 8 weeks: None Family Hx:: Unable to obtain Meds Home Medications Medication Instructions Recorded Confirmed Type Clopidogrel Bisulfate [Plavix] 75 mg PO DAILY 12/27/17 02/08/21 History Ranolazine [Ranexa 500mg ER tablet] 500 mg PO BID 12/27/17 02/08/21 History Cyclobenzaprine HCl 10 mg PO TIDP PRN 02/07/21 02/09/21 History [Cyclobenzaprine 10mg Tab*] Aspirin [Aspirin 325mg Tab] 325 mg PO DAILY 02/08/21 02/08/21 History Atorvastatin Calcium [Lipitor 80mg 80 mg PO DAILY 02/08/21 02/08/21 History Tab] Budesonide/Glycopyr/Formoterol 2 puffs IH BID 02/08/21 02/08/21 History [Breztri Aerosphere Inhaler] Bumetanide [Bumex 1mg tablet] 1 mg PO BID 02/08/21 02/08/21 History Isosorbide Mononitrate [Isosorbide 120 mg PO DAILY 02/08/21 02/08/21 History Mononitrate ER] Levothyroxine Sodium 88 mcg PO DAILY 02/08/21 02/08/21 History [Levothyroxine 88mcg (0.088mg) Tab] Losartan Potassium [Cozaar 100mg 100 mg PO DAILY 02/08/21 02/08/21 History Tablets] Metoprolol Succinate [Metoprolol 100 mg PO DAILY 02/08/21 02/08/21 History Succinate 100mg Tablet*] Zolpidem Tartrate [Ambien 10mg 10 mg PO HSP PRN 02/08/21 02/08/21 History tablet] Allergies Allergy/AdvReac Type Severity Reaction Status Date / Time No Known Allergies Allergy Verified 02/08/21 02:08 Exam Vital signs and Labs for Last 24 Hours: Temp Pulse Resp BP Pulse Ox 97.9 F 73 18 127/84 94 L 02/10/21 07:48 02/10/21 07:48 02/10/21 07:48 02/10/21 07:48 02/10/21 07:48 Laboratory Results - last 24 hr 02/09/21 05:44: Total Counted 100, Neutrophils % (Manual) 85 H, Lymphocytes % (Manual) 7 L, Monocytes % (Manual) 8, Nucleated RBCs 1, Platelet Estimate Normal, Hypochromasia 2+, Anisocytosis 1+, Microcytosis 1+, Tamra Cells 1+ 02/09/21 07:50: PT 19.1 H, INR 1.68 H 02/09/21 17:18: Urine Color Yellow, Urine Appearance Clear, Urine pH 6.0, Ur Specific [place] 1.015, Urine Protein Negative, Urine Glucose (UA) Negative, Urine Ketones Negative, Urine Blood Trace-i, Urine Nitrate Negative, Urine Bilirubin Negative, Urine Urobilinogen 0.2, Ur Leukocyte Esterase Negative, Urine RBC Occasional, Urine WBC 3-5, Ur Squamous Epith Cells Occasional, Urine Bacteria Trace, Urine Sperm 1+ 02/09/21 18:40: Sodium 128 L, Potassium 4.0, Chloride 91 L, Carbon Dioxide 30, Anion Gap 11.0, BUN 55 H, Creatinine 2.50 H, Estimated Creat Clear 24, Estimated GFR 26 L, Est GFR ( Amer) 32 L, Glucose 250 H D, Calcium 7.2 L, Total Bilirubin 0.9, AST 1266 H* D, ALT 1191 H*, Alkaline Phosphatase 212 H, Total Protein 5.8 L, Albumin 3.1 L, Globulin 2.7, Albumin/Globulin Ratio 1.1 02/10/21 05:36: Total Bilirubin 0.8, Direct Bilirubin 0.7 H, Conjugated Bilirubin 0.0, Indirect Bilirubin 0.1, Unconjugated Bilirubin 0.1, AST 712 H* D, ALT 945 H*, Alkaline Phosphatase 189 H, Total Protein 5.0 L, Albumin 2.7 L D 02/10/21 05:36: Sodium 129 L, Potassium 4.1, Chloride 95 L, Carbon Dioxide 27, Anion Gap 11.1, BUN 59 H, Creatinine 1.90 H D, Estimated Creat Clear 31, Estimated GFR 36 L, Est GFR ( Amer) 44 L D, Glucose 155 H D, Calcium 7.0 L 02/10/21 05:36: WBC 12.6 H, RBC 3.69 L, Hgb 10.1 L, Hct 31.8 L, MCV 86.0, MCH 27.4, MCHC 31.8, RDW 16.7, Plt Count 190, MPV 8.4, Neut % (Auto) 87.9 H, Lymph % (Auto) 6
--- NOTE | 2021-02-10 08:13 | HMH.PNCARD ---
Subjective Date: 02/10/21 Time: 08:13 Principal diagnosis: nonstemi, systolic CHF Interval history: This is a 60-year-old white gentleman who is admitted to the hospital from the emergency department and have a non-ST elevation myocardial infarction. The patient underwent right and left cardiac catheterization and was found to have patent coronary artery disease that did not require percutaneous intervention and mildly elevated pulmonary artery pressures which was actually euvolemic for the patient given his degree of LV dysfunction. The patient does have severe LV dysfunction with an estimated ejection fraction of 20 to 25%. The patient is at increased risk for sudden cardiac given his severe LV dysfunction. He will require LifeVest prior to discharge home. The patient is agreeable in getting his LifeVest and is scheduled to undergo a LifeVest fitting this morning. This morning he denies any chest pain or pressure. He states his shortness of breath is improved. He denies any edema, fever, chills, nausea, vomiting, diarrhea, PND orthopnea. The patient states he is ready to be discharged home. Exam Vital signs and Labs for Last 24 Hours: Temp Pulse Resp BP Pulse Ox 97.9 F 73 18 127/84 94 L 02/10/21 07:48 02/10/21 07:48 02/10/21 07:48 02/10/21 07:48 02/10/21 07:48 Laboratory Results - last 24 hr 02/09/21 05:44: Total Counted 100, Neutrophils % (Manual) 85 H, Lymphocytes % (Manual) 7 L, Monocytes % (Manual) 8, Nucleated RBCs 1, Platelet Estimate Normal, Hypochromasia 2+, Anisocytosis 1+, Microcytosis 1+, Tamra Cells 1+ 02/09/21 07:50: PT 19.1 H, INR 1.68 H 02/09/21 17:18: Urine Color Yellow, Urine Appearance Clear, Urine pH 6.0, Ur Specific [place] 1.015, Urine Protein Negative, Urine Glucose (UA) Negative, Urine Ketones Negative, Urine Blood Trace-i, Urine Nitrate Negative, Urine Bilirubin Negative, Urine Urobilinogen 0.2, Ur Leukocyte Esterase Negative, Urine RBC Occasional, Urine WBC 3-5, Ur Squamous Epith Cells Occasional, Urine Bacteria Trace, Urine Sperm 1+ 02/09/21 18:40: Sodium 128 L, Potassium 4.0, Chloride 91 L, Carbon Dioxide 30, Anion Gap 11.0, BUN 55 H, Creatinine 2.50 H, Estimated Creat Clear 24, Estimated GFR 26 L, Est GFR ( Amer) 32 L, Glucose 250 H D, Calcium 7.2 L, Total Bilirubin 0.9, AST 1266 H* D, ALT 1191 H*, Alkaline Phosphatase 212 H, Total Protein 5.8 L, Albumin 3.1 L, Globulin 2.7, Albumin/Globulin Ratio 1.1 02/10/21 05:36: Total Bilirubin 0.8, Direct Bilirubin 0.7 H, Conjugated Bilirubin 0.0, Indirect Bilirubin 0.1, Unconjugated Bilirubin 0.1, AST 712 H* D, ALT 945 H*, Alkaline Phosphatase 189 H, Total Protein 5.0 L, Albumin 2.7 L D 02/10/21 05:36: Sodium 129 L, Potassium 4.1, Chloride 95 L, Carbon Dioxide 27, Anion Gap 11.1, BUN 59 H, Creatinine 1.90 H D, Estimated Creat Clear 31, Estimated GFR 36 L, Est GFR ( Amer) 44 L D, Glucose 155 H D, Calcium 7.0 L 02/10/21 05:36: WBC 12.6 H, RBC 3.69 L, Hgb 10.1 L, Hct 31.8 L, MCV 86.0, MCH 27.4, MCHC 31.8, RDW 16.7, Plt Count 190, MPV 8.4, Neut % (Auto) 87.9 H, Lymph % (Auto) 6.3 L, [place] % (Auto) 5.5, Eos % (Auto) 0.0 L, Baso % (Auto) 0.1, Neut # (Auto) 11.1 H, Lymph # (Auto) 0.8, [place] # (Auto) 0.7, Eos # (Auto) 0.0, Baso # (Auto) 0.0 02/10/21 05:36: Phosphorus 4.7 H I & O for Last 24 hours: Intake & Output 02/07/21 02/08/21 02/09/21 02/10/21 23:59 23:59 23:59 23:59 Intake Total 1999 1353 / 1353 1190 / 1190 Output Total 850 / 850 700 / 700 Balance 1999 503 / 503 490 / 490 Weight 106 lb 119 lb 0.794 oz 118 lb 1 oz 118 lb 5 oz Microbiology Reports for the Last 24 Hours: Microbiology 02/07/21 22:19 Blood Blood Culture - Preliminary NO GROWTH AFTER 48 HOURS 02/07/21 22:19 Blood Blood Culture - Preliminary NO GROWTH AFTER 48 HOURS 02/07/21 22:05 Urine,Catheterized Urine Culture - Final NO GROWTH AFTER 48 HOURS - [place]
--- NOTE | 2021-02-10 08:52 | HMH.DCSUM ---
General - General Admission date:: 02/08/21 Discharge date: 02/10/21 HPI HPI: 60-year-old white male with long history of heart disease, with 2 different bypass procedures at [facility] many years ago as well as a history of CHF with possibly recent exacerbation. His reports that 3 or 4 weeks ago he became extremely breathless, orthopnea and edema were noted, he saw cardiology at [facility]-he sees Bobby Christine Cobden-one of the nurse practitioners there-and his medicines were adjusted and is felt much better. However, 2 nights ago he went out to his garage-he has an extensive large garage in the back of his property that he has outfitted with a refrigerator, couch and lots of other items and tends to spend days and nights in the garage tinkering on old cars and trucks as well as drinking heavily. Its not unusual for his not to see him for 2 or 3 days. However, yesterday after some of their cattle had gotten loose granddaughter went to look for him and found him unconscious in the garage. He was brought to the emergency department. He denied chest pain but reports he had been complaining of chest pain on Monday. He had no worsening edema. He was found to have significant metabolic abnormalities with hyponatremia, elevated transaminase levels, elevated creatinine-unsure about baseline, and troponin elevations. Diagnosed with non-STEMI given his history, presentation and troponin elevations and admitted to hospital for further evaluation. This morning he feels pretty good is alert, pleasant and talkative. He and his have very discordant views of his alcohol use and recent medication issues. Hospital Course Hospital Course: Patient was admitted, transaminases and renal function improved, steroids were given because of his alcoholic hepatitis and he felt better with this. Cardiology consult was done, heart cath was done, results below: ANGIOGRAPHIC RESULTS The left main artery Normal The left anterior descending artery Ostially occluded The circumflex artery Is nondominant and has no obtuse marginal arteries. A large Kugel collateral collateralizes the distal dominant right coronary artery The right coronary artery Dominant and ostially occluded The ROWE ventriculogram reveals Severe left ventricular dilatation with severe left ventricular dysfunction estimated at 20%. The inferior wall is akinetic the anterior wall is hypokinetic The left ventricular end-diastolic pressure 10 to 15 mmHg The left internal mammary artery is a large graft which supplies the LAD with a large T graft supplying a diagonal artery. The saphenous vein graft to the right coronary artery is ostially occluded The saphenous vein graft to the circumflex artery is ostially occluded Right atrial pressure has a large Y descent with a mean pressure of 15 Pulmonary artery pressure 35/25 Pulmonary occlusion pressure 16 Right atrial saturation 40% Pulmonary artery saturation 42% The right renal artery is singular with an ostial 10 to 20% stenosis The left renal artery is ostially occluded IMPRESSION Coronary disease as described above Left ventricular dysfunction as described above Mildly elevated pulmonary artery pressures which is actually euvolemic for the degree of patient's LV dysfunction Chronically occluded left renal artery as described above PLAN 1. Medical management for coronary disease 2. Patient may be a candidate for an AICD. 3. Recommend abstinence from alcohol 4. Standard therapy for systolic heart failure 5. Consideration for LifeVest although patient may not be a candidate due to purported alcohol abuse Electronically signed by : Lonnie Suero, 02/08/2021 15:03:53 Patient did well post procedure, after much discussion agreed for a LifeVest, and this will be placed today. We will also replace his calcium intravenously. Patient is unwilling to stay longer to watch his liver enz
[2021-02-10 09:37] LABS: Lymphocytes % 4 % (10-50); Monocytes % 6 % (2-9); Neutrophils % 90 % (42-76); Nucleated Red Blood Cells 1; Platelet Estimate Normal; Total Cells Counted 100
[2021-02-10 09:38] LABS: Anisocytosis 1+; Burr Cells 1+; Hypochromasia 2+; Microcytosis 1+
--- NOTE | 2021-02-10 10:05 | DIET.NUTRFU ---
Nutritional assessment/consult completed. Pt with severe protein calorie malnutrition rt CHF and ETOH abuse. Pt and given in depth diet education/counseling for Heart Failure/Malnutrition and encouraged to f/u with me post dc.
[2021-02-10 11:15] VITALS: BP 112/71; PULSE 73; RESP 18; TEMP 36.8; O2SAT 93
== END 2021-02-10 11:51 | disposition home or self-care (01) | DRG 280 ==
LOC: ER 23:18 → 2ND 02-08 00:31
PROVIDERS: Internal Medicine; Internal Medicine Adolescent Medicine; Nurse Practitioner Family; Admitting Provider Internal Medicine Adolescent Medicine; Emergency Provider Emergency Medicine; PCP Family Medicine; Visit Provider Internal Medicine Adolescent Medicine
PROC: 4A023N8 Measurement of Cardiac Sampling and Pressure, Bilateral, Percutaneous Approach (ICD-10-PCS; principal; 2021-02-08 13:30)
DX: I21.4 Non-ST elevation (NSTEMI) myocardial infarction (principal); I50.21 Acute systolic (congestive) heart failure; E43 Unspecified severe protein-calorie malnutrition; N17.9 Acute kidney failure, unspecified; I42.6 Alcoholic cardiomyopathy; Z68.1 Body mass index [BMI] 19.9 or less, adult; R65.10 Systemic inflammatory response syndrome (SIRS) of non-infectious origin without acute organ dysfunction; E87.1 Hypo-osmolality and hyponatremia; I25.718 Atherosclerosis of autologous vein coronary artery bypass graft(s) with other forms of angina pectoris; Z95.1 Presence of aortocoronary bypass graft; I27.20 Pulmonary hypertension, unspecified; I25.118 Atherosclerotic heart disease of native coronary artery with other forms of angina pectoris; K70.10 Alcoholic hepatitis without ascites; F10.10 Alcohol abuse, uncomplicated; F17.210 Nicotine dependence, cigarettes, uncomplicated; Z20.822 Contact with and (suspected) exposure to COVID-19; R74.8 Abnormal levels of other serum enzymes; D53.9 Nutritional anemia, unspecified; J43.9 Emphysema, unspecified; Z71.6 Tobacco abuse counseling; Z85.828 Personal history of other malignant neoplasm of skin; I25.2 Old myocardial infarction; E03.9 Hypothyroidism, unspecified; Z79.82 Long term (current) use of aspirin; R30.9 Painful micturition, unspecified
CPT/HCPCS: 36252; 36415; 71046; 72170; 80048; 80053; 80061; 80076; 80305; 80329; 81001; 82550; 82803; 82810; 83605; 83735; 84100; 84436; 84443; 84484; 85007; 85025; 85610; 85730; 87040; 87086; 87581; 87633; 87798; 93005; 93306; 93461; 94761; 96365; 96366; 96375; 99152; 99153; 99284; C1725; C1769; C1894; J1644; J2405; Q9967

== ENCOUNTER → 2021-02-15 13:30 | Outpatient (CLI) | payer BC, SELFPAY ==
[2021-02-15 15:25] LABS: Alanine Aminotransferase 345 U/L (12-78); Albumin Level 3.1 g/dl (3.5-5.0); Albumin/Globulin Ratio 1.3 (1.1-1.8); Alkaline Phosphatase 160 U/L (38-126); Anion Gap 6.8 mEq/L (5-15); Aspartate Amino Transferase 72 U/L (17-59); Bilirubin,Total 0.8 mg/dl (0.2-1.3); Blood Urea Nitrogen 64 mg/dl (9-20); Calcium 8.4 mg/dl (8.4-10.2); Carbon Dioxide 35 mmol/L (22.0-30.0); Chloride 94 mmol/L (98-107); Estimated Glomerular Filt Rate 36 ml/min (>60); GFR (African American) 44 ML/MIN (>60); Globulin 2.3 g/dL (1.3-3.2); Glucose 113 mg/dl (74-100); Magnesium 2.1 mg/dl (1.6-2.3); Potassium 3.8 mmoL/L (3.5-5.1); Sodium 132 mmol/L (136-145); Total Protein,Serum 5.4 g/dl (6.3-8.2)
[2021-02-15 22:21] LABS: Eosinophils % 0.2 % (0.1-12.0); Hematocrit 31.9 % (42.0-52.0); Hemoglobin 9.9 g/dL (14.1-18.0); Lymphocytes # 0.6 K/mm3 (0.7-4.5); Lymphocytes % 3.1 % (10-50); Mean Corpuscular Hemoglobin 26.7 pg (27.0-31.2); Mean Corpuscular Volume 86.1 fl (80-94); Mean Platelet Volume 9.7 fl (7.4-10.4); Monocytes # 0.6 K/mm3 (0.1-1.0); Monocytes % 3.2 % (1.7-9.3); Neutrophils # 17.9 K/mm3 (1.8-7.8); Neutrophils % 93.5 % (37.0-80.0); Platelet Count 273 K/mm3 (142-424); Red Blood Count 3.71 M/mm3 (4.60-6.20); Red Cell Distribution Width 16.1 % (11.5-17.5); White Blood Count 19.2 K/mm3 (4.8-10.8)
[2021-02-15 22:24] LABS: MANUAL DIFFERENTIAL MANUAL DIFFERENTIAL (MANUAL DIFF)
[2021-02-15 23:06] LABS: Lymphocytes % 4 % (10-50); Monocytes % 2 % (2-9); Neutrophils % 94 % (42-76); Total Cells Counted 100
[2021-02-15 23:13] LABS: Hypochromasia 1+; Ovalocytes 1+; Platelet Estimate Normal
== END ==
PROVIDERS: Visit Provider Internal Medicine Adolescent Medicine
DX: I50.20 Unspecified systolic (congestive) heart failure (principal)
CPT/HCPCS: 36415; 80053; 83735; 85007; 85025

== ENCOUNTER → 2022-01-15 10:37 | Outpatient (CLI) | payer MEDICARE, BC, SELFPAY | PROVIDERS: Visit Provider Internal Medicine Gastroenterology | DX: Z01.812 Encounter for preprocedural laboratory examination (principal); Z11.52 Encounter for screening for COVID-19; R19.5 Other fecal abnormalities; Z12.11 Encounter for screening for malignant neoplasm of colon | CPT/HCPCS: C9803; U0003; U0005 ==

== ENCOUNTER → 2022-01-29 09:41 | Outpatient (CLI) | payer MEDICARE, BC, SELFPAY | PROVIDERS: Visit Provider Nurse Practitioner Family | DX: Z01.812 Encounter for preprocedural laboratory examination (principal); Z11.52 Encounter for screening for COVID-19; R19.5 Other fecal abnormalities; Z12.11 Encounter for screening for malignant neoplasm of colon | CPT/HCPCS: C9803; U0003; U0005 ==

== ENCOUNTER 2022-03-20 15:23 | Emergency (ER) | payer MEDICARE, BC, SELFPAY ==
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
[2022-03-20 15:57] VITALS: BP 179/114; PULSE 95; RESP 18; TEMP 36.8; O2SAT 98; BMI 15.6
[2022-03-20 16:00] VITALS: BP 186/113; PULSE 96; O2SAT 97
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
[2022-03-20 16:30] VITALS: BP 195/118; PULSE 94; O2SAT 96
--- NOTE | 2022-03-20 16:32 | PC.NURSE ---
rad at the bedside for portable chest
[2022-03-20 17:13] VITALS: BP 177/90; PULSE 91; RESP 17; TEMP 36.8; O2SAT 99
== END 2022-03-20 17:15 | disposition home or self-care (01) ==
PROVIDERS: Emergency Provider Emergency Medicine
DX: S01.312A Laceration without foreign body of left ear, initial encounter; T14.8XXA Other injury of unspecified body region, initial encounter; Z23 Encounter for immunization; V84.9XXA Unspecified occupant of special agricultural vehicle injured in nontraffic accident, initial encounter; W30.89XA Contact with other specified agricultural machinery, initial encounter; Y93.89 Activity, other specified; Y92.73 Farm field as the place of occurrence of the external cause
CPT/HCPCS: 12013; 71045; 90471; 90715; 99283

== ENCOUNTER → 2022-05-24 12:35 | Outpatient (CLI) | payer MEDICARE, BC, SELFPAY ==
--- NOTE | 2022-05-24 12:42 | XR_ITS ---
FINAL REPORT CLINICAL HISTORY: RT SHOULDER PAIN,PAIN AFTER TRAUMA FINDINGS: RIGHT SHOULDER Three views demonstrate no acute fracture or dislocation. There is mild degenerative change of the acromioclavicular joint. The visualized bony structures are well aligned. No soft tissue abnormality is seen. IMPRESSION: Mild degenerative change of the acromioclavicular joint with no acute bony abnormality. Reviewed, Interpreted and Dictated by Case Wong III, MD Transcribed by Christine Gibson Authenticated and [facility]
--- NOTE | 2022-05-24 12:43 | XR_ITS ---
FINAL REPORT CLINICAL HISTORY: RT ELBOW PAIN,PAIN AFTER TRAUMA FINDINGS: RIGHT ELBOW 3 views of the right elbow were obtained. There is no acute fracture or dislocation. The joint spaces are intact. The soft tissues are unremarkable. IMPRESSION: No acute bony abnormality. Reviewed, Interpreted and Dictated by Case Wong III, MD Transcribed by Christine Gibson Authenticated and . [facility]
== END ==
PROVIDERS: PCP Family Medicine; Visit Provider Family Medicine
DX: M25.511 Pain in right shoulder (principal); M25.521 Pain in right elbow; M79.601 Pain in right arm; G89.29 Other chronic pain
CPT/HCPCS: 73030; 73080

== ENCOUNTER 2022-12-14 18:40 | Observation (INO) | payer MEDICARE, SELFPAY ==
--- NOTE | 2022-12-14 18:37 | ECG_ITS ---
APPROVED REPORT Exam: Resting ECG HR:91 bpm ECG Measurements Heart Rate 91 AXES IL 140 P 72 QRSd 112 QRS 73 QT 391 T 192 QTc 439 Conclusion SINUS RHYTHM LEFT ATRIAL Abnormality Nonspecific INTRAVENTRICULAR CONDUCTION DELAY [110+ ms QRS DURATION] ST DEVIATION AND MODERATE T-WAVE ABNORMALITY, CONSIDER LATERAL ISCHEMIA [-0.1+ mV T-WAVE IN I/aVL/V5/V6] ABNORMAL ECG UNCONFIRMED REPORT Electronically signed by : Viraj Damon MD 12/16/2022 15:42:03
[2022-12-14 18:40] VITALS: BP 126/84; PULSE 91; RESP 20; TEMP 36.6; O2SAT 95; BMI 17.2
--- NOTE | 2022-12-14 18:41 | PC.NURSE ---
DR JEFFRIES AT BEDSIDE
--- NOTE | 2022-12-14 18:42 | XR_ITS ---
PROCEDURE INFORMATION: Exam: XR Chest Exam date and time: 12/14/2022 7:37 PM Age: 62 years old Clinical indication: Shortness of breath; Additional info: SOA TECHNIQUE: Imaging protocol: Radiologic exam of the chest. Views: 1 view. COMPARISON: CR XR CHEST PORTABLE 03/20/2022 4:19 PM FINDINGS: Lungs: Moderate hyperexpansion and hyperlucency with diaphragmatic flattening suggesting COPD. Pulmonary vasculature grossly normal. No gross pulmonary infiltrates or edema pattern. Pleural spaces: No pleural effusion. No pneumothorax. Heart/Mediastinum: Heart size upper limits of normal. No tracheal/mediastinal shift. Bones/joints: Prior median sternotomy. No acute osseous abnormalities are identified. IMPRESSION: 1. No acute thoracic process. 2. COPD. 3. Borderline cardiomegaly and prior median sternotomy with no evidence of acute cardiac decompensation.
--- NOTE | 2022-12-14 18:51 | HMH.EDGENADL ---
Discharge Plan Disposition Patient Disposition: Admitted As Inpatient Chief Complaint: Chest Pain Prescriptions Prescriptions: No Action amlodipine 5 mg tablet 5 mg PO DAILY spironolactone 25 mg tablet 25 mg PO DAILY losartan 25 mg tablet 25 mg PO DAILY mirtazapine 30 mg tablet 30 mg PO DAILY Label Comments: TAKE 1 TABLET BY MOUTH EVERY DAY AT NIGHT famotidine 40 mg tablet 40 mg PO DAILY Label Comments: TAKE 1 TABLET BY MOUTH EVERY DAY metoprolol succinate 100 mg tablet extended release 24 hr 100 mg PO DAILY chlorthalidone 50 mg tablet 50 mg PO DAILY clopidogrel 75 MG tablet 75 mg PO DAILY atorvastatin 80 MG tablet 80 mg PO DAILY isosorbide mononitrate 120 MG tablet extended release 24 hr 120 mg PO DAILY levothyroxine 88 MCG tablet 88 mcg PO DAILY Label Comments: TAKE 1 TABLET BY MOUTH EVERY DAY xtiyjpejwy-vuclkajr-qnvapmqopz 10.7 GM HFA aerosol inhaler 2 puffs IH BID aspirin 325 MG tablet 325 mg PO DAILY Clinical Impressions Clinical Impression: Acute non-ST elevation myocardial infarction (NSTEMI) Discharge ED Provider: Kenneth Guevara General Adult HPI General Chief complaint: Chest Pain Stated complaint: chest pain Time Seen by Provider: 12/14/22 18:40 Mode of Arrival: Wheelchair Limitations: No Limitations Description of Symptoms (Recalled from ER Triage Doc. by RN): PT WITH C/O CHEST PAIN THAT BEGAN ABOUT 1300 TODAY History of Present Illness HPI narrative: 62-year-old man with history of coronary disease, CHF, hypertension presents with chest pain since 1:00. He says the pain is constant dull nonradiating substernal chest. Does not radiate to his back is not tearing or ripping. Not coughing up blood never had pulmonary embolism before no leg swelling or recent travel. He says he took 5-6 nitroglycerin at home without relief. No fever no chills no cough. Related Data Home Medications Medication Instructions Recorded Confirmed clopidogrel 75 mg tablet 75 mg PO DAILY Blood thinner 12/27/17 12/14/22 aspirin 325 mg tablet 325 mg PO DAILY Heart 02/08/21 12/14/22 atorvastatin 80 mg tablet 80 mg PO DAILY Cholesterol 02/08/21 12/14/22 budesonide 160 mcg-glycopyr 9 2 puffs inhalation BID Breathing 02/08/21 12/14/22 mcg-formot 4.8 mcg/actuation HFA problems inhaler isosorbide mononitrate 120 mg 120 mg PO DAILY Hypertension 02/08/21 12/14/22 tablet,extended release 24 hr levothyroxine 88 mcg tablet 88 mcg PO DAILY Hypothyroidism 02/08/21 12/14/22 amlodipine 5 mg tablet 5 mg PO DAILY High blood pressure 03/22/22 12/14/22 famotidine 40 mg tablet 40 mg PO DAILY Acid reflux 03/29/22 12/14/22 losartan 25 mg tablet 25 mg PO DAILY High blood pressure 03/29/22 12/14/22 mirtazapine 30 mg tablet 30 mg PO DAILY Depression 03/29/22 12/14/22 spironolactone 25 mg tablet 25 mg PO DAILY Edema 03/29/22 12/14/22 chlorthalidone 50 mg tablet 50 mg PO DAILY High blood pressure 12/14/22 12/14/22 metoprolol succinate 100 mg 100 mg PO DAILY Heart rhythm 12/14/22 12/14/22 tablet,extended release 24 hr Allergies Allergy/AdvReac Type Severity Reaction Status Date / Time morphine Allergy Verified 03/29/22 12:46 [facility] Disclaimer: The information contained in this section may have been updated after the patient was seen, as this information can be updated by other users. Medical History (Updated 12/14/22 @ 19:56 by Kenneth Guevara MD) Squamous cell carcinoma Surgical History (Updated 12/14/22 @ 18:49 by Cait Paniagua RN) History of open heart surgery Hx of CABG Family History (Updated 12/14/22 @ 18:49 by Cait Paniagua RN) Other No significant family history Social History (Updated 12/14/22 @ 18:49 by Cait aPniagua RN) Smoking Status: Current every day smoker tobacco type: cigarettes packs per day: 1 alcohol intake: current current occupational status: disabled Travel in
[2022-12-14 19:03] LABS: Basophils # 0.1 K/mm3 (0-0.2); Basophils % 0.9 % (0.1-2.0); Eosinophils # 0.8 K/mm3 (0.0-0.4); Eosinophils % 5.5 % (0.1-12.0); Hematocrit 43.5 % (42.0-52.0); Hemoglobin 13.7 g/dL (14.1-18.0); Lymphocytes # 2.3 K/mm3 (0.7-4.5); Lymphocytes % 16.9 % (10-50); Mean Corpuscular HGB Conc 31.6 g/dL (31.8-35.4); Mean Corpuscular Volume 88.8 fl (80-94); Mean Platelet Volume 7.7 fl (7.4-10.4); Monocytes # 0.8 K/mm3 (0.1-1.0); Monocytes % 5.7 % (1.7-9.3); Neutrophils # 9.6 K/mm3 (1.8-7.8); Platelet Count 449 K/mm3 (142-424); Red Cell Distribution Width 18.1 % (11.5-17.5); White Blood Count 13.6 K/mm3 (4.8-10.8)
[2022-12-14 19:08] LABS: Chloride 100 mmol/L (98-107)
[2022-12-14 19:09] LABS: Potassium 4.2 mmoL/L (3.5-5.1); Sodium 136 mmol/L (136-145)
[2022-12-14 19:11] LABS: Alanine Aminotransferase 22 U/L (12-78); Aspartate Amino Transferase 39 U/L (17-59); Blood Urea Nitrogen 21 mg/dl (9-20); Creatinine Clearance Estimated 44 mL/min (50-200); Estimated Glomerular Filt Rate 61 ml/min (>60); GFR (African American) 74 ML/MIN (>60)
[2022-12-14 19:12] LABS: Albumin Level 4.2 g/dl (3.5-5.0); Albumin/Globulin Ratio 1.1 (1.1-1.8); Alkaline Phosphatase 185 U/L (38-126); Anion Gap 14.2 mEq/L (5-15); Bilirubin,Total 0.3 mg/dl (0.2-1.3); Calcium 8.6 mg/dl (8.4-10.2); Carbon Dioxide 26 mmol/L (22.0-30.0); Globulin 3.8 g/dL (1.3-3.2); Glucose 88 mg/dl (74-100)
[2022-12-14 19:17] LABS: Ethyl Alcohol 96 mg/dl (0-10)
[2022-12-14 19:27] LABS: Troponin I < 0.01 ng/ml (0.00-0.034)
[2022-12-14 20:11] LABS: Coronavirus 19, PCR Not Detected (NotDetected); Influenza A, PCR Not Detected (NotDetected); Influenza B, PCR Not Detected (NotDetected)
--- NOTE | 2022-12-14 20:19 | EXP.HP ---
History of Present Illness *Admission Date: 12/14/22 *Reason for visit:: Chest Pain *History of present illness: Mr. Davis is a 62-year-old male with a past medical history of CAD s/p CABG and PCI, history of HFrEF, Alcoholic Cardiomyopathy, Chronic Tobacco use and Hypothyroidism. He presented to Psych[facility] due to an acute onset of chest pain that occurred in the suprasternal chest region with reported radiation down the left arm and into the left wrist that occurred a few hours prior to presentation. He reports that the pain was associated with SOA, nausea and some dizziness. He reports that he took several nitroglycerin with continuation of the pain. He came into the ER for evaluation. In the ER the patient underwent an EKG that showed some ST depression in the lateral leads. Troponin was <0.01. Cxray showed no acute cardiopumonary findings. Alcohol level was 96. The patient will be admitted with initial impression: Chest Pain. The ER Physician spoke with Dr. Suero with Cardiology who recommended Aspirin, Brilinta, Heparin and Nitroglycerin gtt. Cardiology will be consulted. The plan of care was discussed with the patient at bedside in the ER. The patient verbalized understanding and agreement with the plan of care. [facility] Disclaimer: The information contained in this section may have been updated after the patient was seen, as this information can be updated by other users. Medical History (Updated 12/15/22 @ 09:58 by Amebr Caruso APRN) Alcoholic cardiomyopathy Angina pectoris CAD (coronary artery disease) Elevated troponin HFrEF (heart failure with reduced ejection fraction) Hypothyroidism Squamous cell carcinoma Surgical History History of open heart surgery History of percutaneous coronary intervention Hx of CABG Hx of CABG Family History Other No significant family history Social History (Updated 12/14/22 @ 21:33 by Cait Fried RN) Smoking Status: Current every day smoker tobacco type: cigarettes packs per day: 1 alcohol intake: current current occupational status: disabled Travel in the last 8 weeks: None caffeine: Yes Review of Systems Review of Systems Review of systems:: pertinent systems reviewed and negative unless documented below Constitutional Constitutional: Reports system reviewed and no additional complaints, except as documented Eyes Eyes: Reports system reviewed and no additional complaints, except as documented ENT Ears, Nose, Mouth, and Throat: Reports dizziness *Cardiovascular Cardiovascular: Reports chest pain and Reports dyspnea *Respiratory Respiratory: Reports dyspnea *Gastrointestinal Gastrointestinal: Reports nausea *Genitourinary Genitourinary: Reports system reviewed and no additional complaints, except as documented *Musculoskeletal Musculoskeletal: Reports system reviewed and no additional complaints, except as documented Integumentary/Breasts Skin/Breast: Reports system reviewed and no additional complaints, except as documented *Neurologic Neurologic: Reports dizziness Psychiatric Psychiatric: Reports system reviewed and no additional complaints, except as documented Endocrine Endocrine: Reports system reviewed and no additional complaints, except as documented Hematologic/Lymphatic Hematologic/Lymphatic: Reports system reviewed and no additional complaints, except as documented Allergic/Immunologic Allergic/Immunologic: Reports system reviewed and no additional complaints, except as documented Meds Home Medications and Allergies Home Medications Medication Instructions Recorded Confirmed Type clopidogrel 75 mg tablet 75 mg PO DAILY Blood thinner, CAD 12/27/17 12/15/22 History atorvastatin 80 mg tablet 80 mg PO DAILY Cholesterol 02/08/21 12/15/22 History budesonide 160 mcg-glycopyr 9 2 puffs inhalation BID Breathing
--- NOTE | 2022-12-14 20:27 | PC.NURSE ---
Attempted to call report. Nurse hadn't been told yet and they will call us back
[2022-12-14 20:52] VITALS: BP 145/89; PULSE 91; RESP 19; TEMP 36.9; O2SAT 95
--- NOTE | 2022-12-14 20:52 | PC.NURSE ---
Report to ERIS Chaviar
[2022-12-14 20:58] LABS: NT Pro Brain Natriuretic Pep. 5080 pg/mL (0-125)
[2022-12-14 21:00] VITALS: BMI 16.7
[2022-12-14 21:18] VITALS: BP 135/86; PULSE 88; RESP 18; TEMP 37.1; O2SAT 95
--- NOTE | 2022-12-14 21:26 | PC.NURSE ---
Pt arrived to floor via stretcher @ 2100
[2022-12-14 22:00] VITALS: BP 157/91; PULSE 85; RESP 16; O2SAT 94
[2022-12-14 22:00] LABS: INR 0.96 (0.9-1.1); Prothrombin Time 10.4 seconds (10.1-12.5)
[2022-12-14 22:17] LABS: Troponin I 0.05 ng/ml (0.00-0.034)
--- NOTE | 2022-12-14 22:39 | PC.NURSE ---
Spoke with Jose with [facility]. states to give 3000 unit tracie;us of heparin and start drip @ 600 units/hr
[2022-12-14 23:00] VITALS: BP 104/68; PULSE 76; RESP 16; O2SAT 96
[2022-12-15] VITALS (27 sets, daily range): BP systolic 91–173; BP diastolic 63–102; PULSE 64–80; RESP 17–25; TEMP 36.9–37.1; O2SAT 90–99; BMI 16.7
[2022-12-15 01:20] LABS: Troponin I 2.02 ng/ml (0.00-0.034)
--- NOTE | 2022-12-15 01:21 | PC.NURSE ---
Reported critical troponin of 2.02 to Prudencio Flores CRAB MEAT PROCESSOR at this time
--- NOTE | 2022-12-15 02:40 | PC.NURSE ---
0233- Ectopy noted on telemetry. Alexander CONDE made aware. New orders received for BMP and Mag level. Lab notified. Tele strip viewed by MAINT MECHANIC. States if happens again to obtain EKG. No other orders at this time
[2022-12-15 03:04] LABS: Chloride 101 mmol/L (98-107); Sodium 132 mmol/L (136-145)
[2022-12-15 03:07] LABS: Blood Urea Nitrogen 19 mg/dl (9-20); Creatinine Clearance Estimated 47 mL/min (50-200); Estimated Glomerular Filt Rate 68 ml/min (>60); GFR (African American) 82 ML/MIN (>60)
[2022-12-15 03:08] LABS: Calcium 7.9 mg/dl (8.4-10.2); Carbon Dioxide 28 mmol/L (22.0-30.0); Glucose 122 mg/dl (74-100); Magnesium 2.1 mg/dl (1.6-2.3)
--- NOTE | 2022-12-15 04:09 | PC.NURSE ---
Pt admitted this shift. Pt A&OX4. Upon admission, Pt reports alcohol intake of more than once per week, drink of choice being moonshine. Pt states last drink was 12/13 and had 2 [place]. Pt remains on Nitro gtt, currently infusing @ 10 mcg/min. SBP 104-157 since admission. Pt currently NSR on telemetry with ST depression. HR 60s-80's. Pt on Heparin gtt, currently infusing @ 600 units/hour. Next ptt scheduled for 0430 this AM. Pt currently denies chest pain and nausea. Was medicated PRN per NOV X1 for nausea this shift. No other complaints. Upon admission, Pts chart stated pt was allergic to morphine. Pt and pts deny pt ever being allergic to morphine. Chart updated. Pt uses urinal independently in bed. Pt kept NPO since midnight. Call light within reach, at bedside.
[2022-12-15 04:50] LABS: Basophils # 0.1 K/mm3 (0-0.2); Basophils % 1.1 % (0.1-2.0); Eosinophils # 0.6 K/mm3 (0.0-0.4); Eosinophils % 6.1 % (0.1-12.0); Hematocrit 36.6 % (42.0-52.0); Lymphocytes % 20.3 % (10-50); Mean Corpuscular HGB Conc 31.6 g/dL (31.8-35.4); Mean Corpuscular Hemoglobin 27.9 pg (27.0-31.2); Mean Corpuscular Volume 88.2 fl (80-94); Mean Platelet Volume 8.3 fl (7.4-10.4); Monocytes # 0.8 K/mm3 (0.1-1.0); Monocytes % 8.4 % (1.7-9.3); Neutrophils # 6.2 K/mm3 (1.8-7.8); Neutrophils % 64.1 % (37.0-80.0); Platelet Count 360 K/mm3 (142-424); Red Blood Count 4.16 M/mm3 (4.60-6.20); Red Cell Distribution Width 18.2 % (11.5-17.5); White Blood Count 9.7 K/mm3 (4.8-10.8)
[2022-12-15 04:52] LABS: Chloride 102 mmol/L (98-107); Sodium 134 mmol/L (136-145)
[2022-12-15 04:55] LABS: Alanine Aminotransferase 21 U/L (12-78); Albumin Level 3.2 g/dl (3.5-5.0); Alkaline Phosphatase 146 U/L (38-126); Aspartate Amino Transferase 74 U/L (17-59); Bilirubin,Total 0.2 mg/dl (0.2-1.3); Blood Urea Nitrogen 19 mg/dl (9-20); Carbon Dioxide 29 mmol/L (22.0-30.0); Creatinine Clearance Estimated 52 mL/min (50-200); Estimated Glomerular Filt Rate 75 ml/min (>60); GFR (African American) 91 ML/MIN (>60); Globulin 3.2 g/dL (1.3-3.2); Total Protein,Serum 6.4 g/dl (6.3-8.2)
[2022-12-15 04:56] LABS: Glucose 86 mg/dl (74-100)
[2022-12-15 04:59] LABS: Hemoglobin 11.6 g/dL (14.1-18.0)
[2022-12-15 05:00] LABS: PTT Heparin (inpatient only) 35.6 Seconds (23.6-34.0)
[2022-12-15 05:08] LABS: Chol/HDL Ratio 2.4 (1-3.5); Cholesterol 137 mg/dl (140-200); HDL Cholesterol 56 mg/dl (40-60); Triglycerides 126 mg/dl (30-150); VLDL Cholesterol 25 mg/dL (0-40)
[2022-12-15 05:19] LABS: Direct LDL Cholesterol 49.01 mg/dL (100-129)
--- NOTE | 2022-12-15 05:25 | PC.NURSE ---
critical troponin 11.10 reported to Prudencio Flores NP at this time.
--- NOTE | 2022-12-15 05:26 | PC.NURSE ---
Spoke with Jose at [facility] pharmacy. PTT 35.6. Orders received to give 4000 unit bolus heparin and increase heparin gtt rate to 800 units/hr. Next PTT to be drawn @ 1130
--- NOTE | 2022-12-15 06:00 | CA_ITS ---
APPROVED REPORT EXAM: Comprehensive 2D, Doppler, and color-flow Echocardiogram [employer] Operations Manager: Shamika Villarreal RDCS Ht: 5 ft 7 in Wt: 110lbs BSA: 1.57 BP: 126/84 mmHg Indications: CP,ETOH CM,CAD,CABG 2D Dimensions LVOT 1.90 cm (M/F) 1.5-2.5 M-Mode Dimensions RVDd 2.09 cm (0.9-2.6) LA Diam 3.67 cm (1.9-4.0) LVDd 6.18 cm (3.5-5.7) Ao Diam 3.71 cm (2.0-3.7) LVDs 5.02 cm (3.5-5.7) IVSd 0.76 cm (0.6-1.1) PWd 0.76 cm (0.6-1.1) EF (Teich) 38.10% FS 18.80% EDV (Teich) 192.60 mL ESV (Teich) 119.30 mL LV Diastology E Decel Time 283.00 (160-240 msec) E/A Ratio 1.3 MED E' 4.70 (< 7 cm/sec) E'/MED E' Ratio 13.13 (>14) LAT E' 6.80 (<10 cm/sec) E/LAT E' Ratio 9.07 (>14) Aortic Valve AI PHT 711.00 ms Mitral Valve MV E Max Roberto. 62.00 (40-130 cm/s) MV A Velocity 49.00 (40-130 cm/s) E/A Ratio 1.25 MV Decel. Time 283.00 (160-240 ms) MV PHT 83.00 ms Tricuspid Valve TR P. Velocity 314.00 cm/s RAP Estimate 10.00 mmHg RVSP 49.40 mmHg Left Ventricle Left atrium is mildly enlarged, left ventricle is normal size, estimated ejection fraction 50% with no regional wall motion abnormality, diastolic parameters are inconclusive. Right Ventricle Right atrium and right ventricle are normal size and contractility. Aortic Valve Aortic valve is minimally thickened and calcified without aortic stenosis, there is mild aortic insufficiency. Mitral Valve Mitral valve is grossly normal, there is mild mitral regurgitation. Tricuspid Valve Tricuspid valve grossly normal, there is mild tricuspid regurgitation, calculated right ventricular systolic pressure is 49 mmHg. Pulmonic Valve Pulmonic valve is poorly visualized. Great Vessels Aortic root is normal size. Inferior vena cava is poorly visualized. Pericardium No significant pericardial effusion noted. Conclusion 1. Mildly enlarged left atrium, normal left ventricular size, estimated ejection fraction 50% with no regional wall motion abnormality, diastolic parameters are inconclusive. 2. Mild aortic, mitral and tricuspid regurgitation, calculated right ventricular systolic pressure is 49 mmHg. 3. No significant pericardial effusion noted. 4. Inferior vena cava is poorly visualized. Electronically signed by : Danny Hatch MD 12/16/2022 17:09:31
--- NOTE | 2022-12-15 07:50 | ECG_ITS ---
APPROVED REPORT Exam: Resting ECG HR:69 bpm ECG Measurements Heart Rate 69 AXES FL 144 P 52 QRSd 103 QRS 6 QT 425 T 99 QTc 443 Conclusion SINUS RHYTHM LEFT VENTRICULAR HYPERTROPHY AND ST-T CHANGE [VOLTAGE CRITERIA PLUS ST/T ABNORMALITY] ABNORMAL ECG UNCONFIRMED REPORT Electronically signed by : Viraj Damon MD 12/15/2022 16:43:54
--- NOTE | 2022-12-15 07:57 | HMH.PHAHEP ---
[facility] Pharmacy Heparin Dosing Demographic Data Admission date:: 12/14/22 Date: 12/15/22 Time: 07:58 Allergies Allergy/AdvReac Type Severity Reaction Status Date / Time No Known Allergies Allergy Verified 12/14/22 23:04 Height: 1.67 m Weight: 48 kg Indication Medication therapy:: Heparin Current Indications:: LOW DOSE PROTOCOL FOR ACS - NON-STEMI Current Active Problems (Updated 12/15/22 @ 09:58 by Amber Caruso APRN) Elevated troponin (Acute) Angina pectoris (Acute) Chest pain (Acute) Tobacco abuse (Acute) Hypothyroidism (Acute) Hypertension (Acute) CAD (coronary artery disease) (Acute) Alcoholic cardiomyopathy (Acute) HFrEF (heart failure with reduced ejection fraction) (Acute) NSTEMI (non-ST elevated myocardial infarction) (Acute) Systolic CHF (Chronic) Alcohol abuse (Chronic) SOB (shortness of breath) (Acute) Alcoholic hepatitis (Chronic) Alcoholic cardiomyopathy (Chronic) Acute non-ST elevation myocardial infarction (NSTEMI) (Acute) CVA?: No Bleeding problem?: No Kidney disease?: No UT?: Yes Additional History:: NSTEMI Desired PTT range:: 50-75 seconds Comments:: PT GIVEN INTITAL 3000 UNIT BOLUS AND DRIP STARTED AT 600 UNITS/HR (12 ML/HR) Labs Anticoagulation Lab Results:: 12/14/22 12/15/22 18:50 04:40 Hgb 13.7 L 11.6 L D Hct 43.5 36.6 L Plt Count 449 H 360 Monitoring Dose Monitor 1: Date: 12/15/22 Time: 04:59 PTT Result:: 35.6 Infusion Rate:: RATE INCREASED BY 4 UNITS/KG/HR TO 800 UNITS/HR (16ML/HR) Comment:: NEXT PTT SCHEDULED FOR 1130 Core Measures Is INR > or = 2 at discharge?: No Most Recent Labs:: Laboratory Results - last 24 hr 12/14/22 18:50: WBC 13.6 H, RBC 4.90, Hgb 13.7 L, Hct 43.5, MCV 88.8, MCH 28.0, MCHC 31.6 L, RDW 18.1 H, Plt Count 449 H, MPV 7.7, Neut % (Auto) 71.0, Lymph % (Auto) 16.9, Carter % (Auto) 5.7, Eos % (Auto) 5.5, Baso % (Auto) 0.9, Neut # (Auto) 9.6 H, Lymph # (Auto) 2.3, Carter # (Auto) 0.8, Eos # (Auto) 0.8 H, Baso # (Auto) 0.1 12/14/22 18:50: Sodium 136, Potassium 4.2, Chloride 100, Carbon Dioxide 26, Anion Gap 14.2, BUN 21 H, Creatinine 1.20, Estimated Creat Clear 44, Estimated GFR 61, Est GFR ( Amer) 74, Glucose 88, Calcium 8.6, Total Bilirubin 0.3, AST 39, ALT 22, Alkaline Phosphatase 185 H, Troponin I < 0.01, Total Protein 8.0 D, Albumin 4.2, Globulin 3.8 H, Albumin/Globulin Ratio 1.1 12/14/22 18:50: Plasma/Serum Alcohol 96 H 12/14/22 18:50: NT-Pro-B Natriuret Pep 5080 H 12/14/22 19:51: SARS-CoV-2 (PCR) Not detected, Influenza A Untype (PCR) Not detected, Influenza Type B (PCR) Not detected 12/14/22 21:45: Troponin I 0.05 H 12/14/22 21:45: PT 10.4, INR 0.96 12/15/22 00:48: Troponin I 2.02 H 12/15/22 02:55: Sodium 132 L, Potassium 4.0, Chloride 101, Carbon Dioxide 28, Anion Gap 7.0, BUN 19, Creatinine 1.10, Estimated Creat Clear 47, Estimated GFR 68, Est GFR ( Amer) 82, Glucose 122 H D, Calcium 7.9 L 12/15/22 02:55: Magnesium 2.1 12/15/22 04:40: Troponin I 11.10 H 12/15/22 04:40: Sodium 134 L, Potassium 4.0, Chloride 102, Carbon Dioxide 29, Anion Gap 7.0, BUN 19, Creatinine 1.00, Estimated Creat Clear 52, Estimated GFR 75, Est GFR ( Amer) 91, Glucose 86 D, Calcium 8.0 L, Total Bilirubin 0.2, AST 74 H D, ALT 21, Alkaline Phosphatase 146 H, Total Protein 6.4, Albumin 3.2 L D, Globulin 3.2, Albumin/Globulin Ratio 1.0 L 12/15/22 04:40: APTT 35.6 H 12/15/22 04:40: WBC 9.7 D, RBC 4.16 L, Hgb 11.6 L D, Hct 36.6 L, MCV 88.2, MCH 27.9, MCHC 31.6 L, RDW 18.2 H, Plt Count 360, MPV 8.3, Neut % (Auto) 64.1, Lymph % (Auto) 20.3, Carter % (Auto) 8.4, Eos % (Auto) 6.1, Baso % (Auto) 1.1, Neut # (Auto) 6.2, Lymph # (Auto) 2.0, Carter # (Auto) 0.8, Eos # (Auto) 0.6 H, Baso # (Auto) 0.1 12/15/22 04:40: Triglycerides 126, Cholesterol 137 L, LDL Cholesterol Direct 49.01 L, VLDL Cholesterol 25, HDL Cholesterol 56, Cholesterol/HDL Ratio 2.4 Were Heparin and Warfarin started on the same day?: No
--- NOTE | 2022-12-15 08:25 | HMH.PHAINT1 ---
Pharmacy Intervention Comments: Reconciled patient's medications using pharmacy fill records and patient interview.
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
--- NOTE | 2022-12-15 09:10 | PC.NURSE ---
Addendum entered by Cait Talbot RN 12/15/22 11:31: 1128 drip stopped at this time r/t bp 106/72. Addendum entered by Cait Talbot RN 12/15/22 11:04: 1035 drip decreased to 2mcg/min r/t bp 91/64 & 101/65 Addendum entered by Cait Talbot RN 12/15/22 10:13: 1010 drip decreased to 10mcg/min r/t bp 132/83 Original Note: late entry: Nitroglycerin drip infusing at 10mcg/min at start of shift 0808 drip increased to 12mcg/min r/t bp 173/102
--- NOTE | 2022-12-15 09:50 | EXP.CARD.CON ---
History of Present Illness History of Present Illness Consult date: 12/15/22 Requesting physician: Marcello Hodges Consult reason: chest pain Chief complaint: chest pain History of present illness: This is a 61-year-old white gentleman who presented to the emergency department complaints of chest pain. The patient states that he was having some pain in the left side of his chest radiating down his left arm and into his left wrist. He states it was associated with shortness of breath, nausea and dizziness. The patient reports that he has chest pain every single day and uses nitroglycerin blurry multiple times a day every day but his pain significantly worsened yesterday and he had a significantly elevated blood pressure and that is why he decided to come into the emergency department. His initial EKG did show some ST depression in the lateral leads and his initial troponin was negative. Since that time the patient has had an elevation in his troponin with a troponin max at 11.10. The patient was started on a nitroglycerin drip due to his elevated blood pressure and chest pain. This morning he remains on the nitroglycerin drip but is currently chest pain-free. His blood pressure remains elevated. 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 He denies any fever, chills, vomiting, diarrhea, PND or orthopnea. He denies any lower extremity edema. [facility] Disclaimer: The information contained in this section may have been updated after the patient was seen, as this information can be updated by other users. Medical History (Updated 12/15/22 @ 09:58 by Amber Caruso APRN) Alcoholic cardiomyopathy Angina pectoris CAD (coronary artery disease) Elevated troponin HFrEF (heart failure with reduced ejection fraction) Hypothyroidism Squamous cell carcinoma Surgical History History of open heart surgery History of percutaneous coronary intervention Hx of CABG Hx of CABG Family History Other No significant family history Social History (Updated 12/14/22 @ 21:33 by Cait Fried RN) Smoking Status: Current every day smoker tobacco type: cigarettes packs per day: 1 alcohol intake: current current occupational status: disabled Travel in the last 8 weeks: None caffeine: Yes Review of Systems Review of Systems Review of systems:: pertinent systems reviewed and negative unless documented below Constitutional Constitutional: Reports system reviewed and no additional complaints, except as documented and Reports lethargy Eyes Eyes: Reports system reviewed and no additional complaints, except as documented ENT Ears, Nose, Mouth, and Throat: Reports system reviewed and no additional complaints, except as documented and Reports dizziness *Cardiovascular Cardiovascular: Reports system reviewed and no additional complaints, except as documented, Reports chest pain at rest, Reports chest pain with activity, Reports dyspnea, Reports dyspnea on exertion and Reports radiating jaw, neck or arm pain *Respiratory Respiratory: Reports system reviewed and no additional complaints, except as documented, Reports dyspnea and Reports dyspnea on exertion *Gastrointestinal Gastrointestinal: Reports system reviewed and no additional complaints, except as documented, Reports nausea and Denies vomiting *Genitourinary Genitourinary: Reports system reviewed and no additional complaints, except as documented *Musculoskeletal Musculoskeletal: Reports system reviewed and no additional complaints, except as documented Integumentary/Breasts Skin/Breast: Reports system reviewed and no additional complaints, except as documented *Neurologic Neurologic: Denies confusion an
--- NOTE | 2022-12-15 11:31 | PC.NURSE ---
O2 removed at this time, pt on room air
--- NOTE | 2022-12-15 13:00 | DIET.NUTRFU ---
Patient plans to discharge later today, saw patient secondary to difficulty swallowing. Has a hx of cancer and no longer produces salvia. He has low BMI at risk for malnutrition. tries to find foods that work for patient but he seems picky and dislikes a lot of foods. She had made him meat salad or egg salad. He likes peanut butter and sometimes ice cream. He eats peanut butter and crackers at times. Encouraged 6 small meals but patient very set in his ways and feels likes that's too much food. Provided him with multiple handouts on high calorie-high protein foods and ways to enhance foods. Also provided a milkshake recipe handout. He likes butter pecan ensure, hard to find. [employer] carries it but did not say they were going to order it. Nurse also included multiple dietary handouts in discharge package.
--- NOTE | 2022-12-15 14:09 | EXP.DC.SUM ---
General Admission date:: 12/14/22 Discharge date: 12/15/22 HPI HPI HPI: Mr. Davis is a 62-year-old male with a past medical history of CAD s/p CABG and PCI, history of HFrEF, Alcoholic Cardiomyopathy, Chronic Tobacco use and Hypothyroidism. He presented to [facility] due to an acute onset of chest pain that occurred in the suprasternal chest region with reported radiation down the left arm and into the left wrist that occurred a few hours prior to presentation. He reports that the pain was associated with SOA, nausea and some dizziness. He reports that he took several nitroglycerin with continuation of the pain. He came into the ER for evaluation. In the ER the patient underwent an EKG that showed some ST depression in the lateral leads. Troponin was <0.01. Cxray showed no acute cardiopumonary findings. Alcohol level was 96. The patient will be admitted with initial impression: Chest Pain. The ER Physician spoke with Dr. Suero with Cardiology who recommended Aspirin, Brilinta, Heparin and Nitroglycerin gtt. Cardiology will be consulted. The plan of care was discussed with the patient at bedside in the ER. The patient verbalized understanding and agreement with the plan of care. Hospital Course Hospital Course Hospital Course: 62-year-old male with past medical history of CAD with h/o CABG and PCI, HFrEF, Alcoholic Cardiomyopathy, Chronic Tobacco Use and Hypothyroidism presents with acute onset of chest pain that occurred a few hours prior to presentation. Initiated on nitro drip, monitored overnight. Pain improved. Cardiology consulted, transition back to oral home regimen. Significant improvement in blood pressure and able to wean off nitro drip. No plan for aggressive intervention. Problems addressed as follows: - Chest Pain - Heart failure with reduced ejection fraction - Hypertension EKG on presentation showed some ST depression in lateral leads. Initial troponin was less than 0.01. Continue to elevate overnight with max troponin 11. Cardiology was consulted. Patient was treated with nitroglycerin drip overnight. Chest pain resolved even in light of increasing troponins. Repeat EKG in the morning showed improvement in ST depressions. Cardiology's evaluation noted the pain and elevated troponin likely related to demand ischemia from his malignant hypertension. Recommended resuming home antihypertensive regimen and discontinuing nitro drip. Given previous presentation with similar symptoms and heart cath in January 2021, no plan for left heart catheterization at this time. After resuming home blood pressure regimen, systolic blood pressure in the 100s. Will resume full regimen including beta-juan jose, aspirin, Plavix, statin, Imdur, Norvasc, losartan. As there is no plan for intervention, patient is requesting to go home. Care team agrees with no further inpatient needs. Stable to discharge home with close follow-up with his primary measurer in [place]. facilitating close follow-up appointment. Was diuresed x1 with Lasix 40 mg IV due to elevated BNP in the setting of his hypertension. Responded well to this treatment Echo obtained. Preliminary ejection fraction greater than 30%. Previous echocardiogram in 21 with EF of 20 to 25%. - Alcoholic Cardiomyopathy Continues to drink alcohol. Alcohol level 96 on presentation. Denies a history of withdrawals with any cessation. Reports currently drinks a couple times week, Discussing need for cessation. No signs of withdrawal during admission. This significantly complicates his ability for improvement of above problems. Also complicates further treatment of his heart failure Hyperlipidemia: Continue home statin Hypothyroidism: Continue Levothyroxine Medically stable for discharge home. Encouraged aggressive management of his blood pressure. No further recommendation of intervention. Close follow-up with patient's primary measurer. De
--- NOTE | 2022-12-16 14:05 | CARE MANAGER ---
Attempted post-discharge phone interview, phone has a voice mail box that has not been set up yet.
== END 2022-12-15 14:55 | disposition home or self-care (01) ==
LOC: ER 20:11 → 2ND 20:19
PROVIDERS: Nurse Practitioner Family; Admitting Provider Internal Medicine Adolescent Medicine; Emergency Provider Emergency Medicine; PCP Family Medicine; Visit Provider Internal Medicine Adolescent Medicine
DX: I21.4 Non-ST elevation (NSTEMI) myocardial infarction (principal); I11.0 Hypertensive heart disease with heart failure; E03.9 Hypothyroidism, unspecified; I25.118 Atherosclerotic heart disease of native coronary artery with other forms of angina pectoris; F17.210 Nicotine dependence, cigarettes, uncomplicated; I27.20 Pulmonary hypertension, unspecified; K70.10 Alcoholic hepatitis without ascites; Z95.1 Presence of aortocoronary bypass graft; I42.6 Alcoholic cardiomyopathy; I50.20 Unspecified systolic (congestive) heart failure; Y90.4 Blood alcohol level of 80-99 mg/100 ml; F10.10 Alcohol abuse, uncomplicated; Z20.822 Contact with and (suspected) exposure to COVID-19
CPT/HCPCS: G0378; 36415; 71045; 80048; 80053; 80061; 83735; 83880; 84484; 85025; 85610; 85730; 93005; 93306; 94640; 99291; C9803; J2405; U0003; U0005

== ENCOUNTER 2024-04-22 10:49 | Outpatient (CLI) | payer MEDICARE, SELFPAY ==
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
== END 2024-04-22 23:59 | disposition home or self-care (01) ==
PROVIDERS: PCP Family Medicine; Visit Provider Family Medicine
DX: M25.531 Pain in right wrist (principal)
CPT/HCPCS: 73110

== ENCOUNTER 2024-04-29 13:51 | Outpatient (CLI) | payer MEDICARE, SELFPAY ==
[2024-04-29 14:37] LABS: Basophils # 0.1 K/mm3 (0-0.2); Eosinophils # 0.5 K/mm3 (0.0-0.4); Eosinophils % 8.4 % (0.1-12.0); Hematocrit 29.7 % (42.0-52.0); Hemoglobin 9.2 g/dL (14.1-18.0); Lymphocytes % 17.1 % (10-50); Mean Corpuscular HGB Conc 31.2 g/dL (31.8-35.4); Mean Corpuscular Hemoglobin 30.4 pg (27.0-31.2); Mean Corpuscular Volume 97.7 fl (80-94); Monocytes # 0.5 K/mm3 (0.1-1.0); Monocytes % 8.5 % (1.7-9.3); Neutrophils # 3.8 K/mm3 (1.8-7.8); Neutrophils % 65.1 % (37.0-80.0); Platelet Count 457 K/mm3 (142-424); Red Blood Count 3.04 M/mm3 (4.60-6.20); Red Cell Distribution Width 17.2 % (11.5-17.5); White Blood Count 5.9 K/mm3 (4.8-10.8)
[2024-04-29 15:17] LABS: Alanine Aminotransferase 79 U/L (12-78); Albumin Level 2.8 g/dl (3.5-5.0); Alkaline Phosphatase 164 U/L (38-126); Anion Gap 10.4 mEq/L (5-15); Aspartate Amino Transferase 76 U/L (17-59); Bilirubin,Total 0.2 mg/dl (0.2-1.3); Blood Urea Nitrogen 26 mg/dl (9-20); Calcium 8.6 mg/dl (8.4-10.2); Carbon Dioxide 28 mmol/L (22.0-30.0); Chloride 106 mmol/L (98-107); Estimated Glomerular Filt Rate 75 ml/min (>60); GFR (African American) 91 ML/MIN (>60); Globulin 2.9 g/dL (1.3-3.2); Glucose 193 mg/dl (74-100); Potassium 4.4 mmoL/L (3.5-5.1); Sodium 140 mmol/L (136-145); Total Protein,Serum 5.7 g/dl (6.3-8.2)
[2024-04-29 15:35] LABS: Barbiturates Screen,Urine Negative ng/ml (<200)
[2024-04-29 15:36] LABS: Benzodiazepines Screen,Urine Negative ng/ml (<200)
[2024-04-29 15:37] LABS: Amphetamine/Metha Screen,Urine Negative ng/ml (<1000); Cannabinoid Screen,Urine Negative ng/ml (<50)
[2024-04-29 15:38] LABS: Cocaine Screen,Urine Negative ng/ml (<300)
[2024-04-29 15:39] LABS: Methadone Screen,Urine Negative ng/ml (<300); Opiate Screen,Urine Negative ng/ml (<300)
[2024-04-29 15:40] LABS: Phencyclidine Screen,Urine Negative ng/ml (<25)
== END 2024-04-29 23:59 | disposition home or self-care (01) ==
LOC: LAB 13:53
PROVIDERS: PCP Family Medicine; Visit Provider Orthopaedic Surgery Adult Reconstructive Orthopaedic Surgery
DX: Z01.818 Encounter for other preprocedural examination (principal); Z79.899 Other long term (current) drug therapy
CPT/HCPCS: 36415; 80053; 80307; 85025

== ENCOUNTER 2024-11-19 08:35 | Outpatient (CLI) | payer MEDICARE, SELFPAY ==
[2024-11-19 08:51] LABS: Basophils # 0.1 K/mm3 (0-0.2); Eosinophils # 0.9 K/mm3 (0.0-0.4); Hematocrit 39.7 % (42.0-52.0); Hemoglobin 12.5 g/dL (14.1-18.0); Lymphocytes # 1.5 K/mm3 (0.7-4.5); Lymphocytes % 18.6 % (10-50); Mean Corpuscular HGB Conc 31.5 g/dL (31.8-35.4); Mean Corpuscular Hemoglobin 28.7 pg (27.0-31.2); Mean Corpuscular Volume 91.1 fl (80-94); Mean Platelet Volume 9.5 fl (7.4-10.4); Monocytes # 1.1 K/mm3 (0.1-1.0); Monocytes % 12.9 % (1.7-9.3); Neutrophils # 4.7 K/mm3 (1.8-7.8); Neutrophils % 56.1 % (37.0-80.0); Platelet Count 343 K/mm3 (142-424); Red Blood Count 4.36 M/mm3 (4.60-6.20); Red Cell Distribution Width 17.8 % (11.5-17.5); White Blood Count 8.3 K/mm3 (4.8-10.8)
[2024-11-19 09:50] LABS: Albumin Level 3.7 g/dl (3.5-5.0); Chloride 102 mmol/L (98-107); Potassium 4.6 mmoL/L (3.5-5.1); Sodium 139 mmol/L (136-145)
[2024-11-19 09:53] LABS: Alanine Aminotransferase 27 U/L (12-78); Albumin/Globulin Ratio 1.4 (1.1-1.8); Alkaline Phosphatase 163 U/L (38-126); Anion Gap 9.6 mEq/L (5-15); Aspartate Amino Transferase 37 U/L (17-59); Bilirubin,Total 0.3 mg/dl (0.2-1.3); Blood Urea Nitrogen 23 mg/dl (9-20); Carbon Dioxide 32 mmol/L (22.0-30.0); Cholesterol 166 mg/dl (140-200); Estimated Glomerular Filt Rate 67 ml/min (>60); GFR (African American) 81 ML/MIN (>60); Globulin 2.7 g/dL (1.3-3.2); Total Protein,Serum 6.4 g/dl (6.3-8.2); Triglycerides 77 mg/dl (30-150); VLDL Cholesterol 15 mg/dL (0-40)
[2024-11-19 09:54] LABS: Chol/HDL Ratio 2.2 (1-3.5); Glucose 106 mg/dl (74-100); HDL Cholesterol 76 mg/dl (40-60)
[2024-11-19 10:05] LABS: Direct LDL Cholesterol 70.62 mg/dL (100-129)
== END 2024-11-19 23:59 | disposition home or self-care (01) ==
LOC: LAB 08:37
PROVIDERS: PCP Family Medicine; Visit Provider Family Medicine
DX: I10 Essential (primary) hypertension (principal); E78.00 Pure hypercholesterolemia, unspecified
CPT/HCPCS: 36415; 80053; 80061; 85025

== ENCOUNTER 2025-01-01 18:37 | Emergency (ER) | payer MEDICARE, SELFPAY ==
[2025-01-01] VITALS (19 sets, daily range): BP systolic 102–172; BP diastolic 54–95; PULSE 85–111; RESP 15–37; TEMP 35.1–36.5; O2SAT 93–100; BMI 20.5; BMI 17.7
[2025-01-01] MEDS: LACTATED RINGERS 1000ML 4,000 ML 500 ML IV (18:45)
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
[2025-01-01] MEDS: ETOMIDATE 40MG/20ML VIAL 20 MG IV (18:46)
[2025-01-01] MEDS: ROCURONIUM BROMIDE 50MG/5ML VIAL 70 MG IV (18:48)
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
[2025-01-01 19:09] LABS: Carboxyhemoglobin 5.2 (0.0-5.0)
[2025-01-01 19:10] LABS: VBG Base Excess -4.6 mmol/L (-2.4-2.3); VBG HCO3 21.2 mmol/L (23-30); VBG Oxygen Saturation 83.4 % (50-70); VBG PCO2 40.1 mmol/L (35-51); VBG PH 7.34 mmol/L (7.31-7.41); VBG PO2 52.9 mmol/L (28-40); VBG Total CO2 22.4 mmol/L (23-27)
[2025-01-01 19:11] LABS: Lactate Venous 6.2 mmol/L (0.4-2.0)
[2025-01-01 19:11] LABS: Microscopic, Urine URINE MICROSCOPIC (MICROSCOPIC)
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
[2025-01-01 19:17] LABS: Basophils # 0.1 K/mm3 (0-0.2); Basophils % 0.7 % (0.1-2.0); Eosinophils # 0.8 K/mm3 (0.0-0.4); Eosinophils % 5.8 % (0.1-12.0); Hemoglobin 12.7 g/dL (14.1-18.0); Lymphocytes % 21.9 % (10-50); Mean Corpuscular HGB Conc 33.4 g/dL (31.8-35.4); Mean Corpuscular Hemoglobin 30.4 pg (27.0-31.2); Mean Corpuscular Volume 90.9 fl (80-94); Mean Platelet Volume 10.4 fl (7.4-10.4); Monocytes # 1.3 K/mm3 (0.1-1.0); Monocytes % 9.1 % (1.7-9.3); Neutrophils # 8.6 K/mm3 (1.8-7.8); Neutrophils % 61.9 % (37.0-80.0); Nucleated Red Blood Cells # 0 10^3/uL; Nucleated Red Blood Cells % 0 %; Platelet Count 357 K/mm3 (142-424); Red Blood Count 4.18 M/mm3 (4.60-6.20); Red Cell Distribution Width 19.1 % (11.5-17.5); Red Cell Distribution Width-SD 63.5 fL; White Blood Count 13.8 K/mm3 (4.8-10.8)
--- NOTE | 2025-01-01 19:18 | PC.NURSE ---
[facility] declined for weather. there other unit was landing in [place] and they would try and make contact with them to see if they could possibly take the flight and would call us back
[2025-01-01 19:21] LABS: Alanine Aminotransferase 24 U/L (12-78); Albumin Level 2.5 g/dl (3.5-5.0); Albumin/Globulin Ratio 0.9 (1.1-1.8); Alkaline Phosphatase 87 U/L (38-126); Anion Gap 20.2 mEq/L (5-15); Aspartate Amino Transferase 90 U/L (17-59); Bilirubin,Total 0.9 mg/dl (0.2-1.3); Blood Urea Nitrogen 15 mg/dl (9-20); Calcium 7.7 mg/dl (8.4-10.2); Carbon Dioxide 18 mmol/L (22.0-30.0); Chloride 102 mmol/L (98-107); Creatinine Clearance Estimated 52 mL/min (50-200); Estimated Glomerular Filt Rate 113 ml/min (>60); GFR (African American) 137 ML/MIN (>60); Globulin 2.9 g/dL (1.3-3.2); Glucose 92 mg/dl (74-100); Potassium 4.2 mmoL/L (3.5-5.1); Sodium 136 mmol/L (136-145); Total Protein,Serum 5.4 g/dl (6.3-8.2)
[2025-01-01 19:23] LABS: Appearance,Urine CLEAR (Clear); Bilirubin,Urine Negative (Negative); Blood, Urine 1+ (Negative); Color,Urine YELLOW (Yellow); Glucose,Urine (UA) Negative (Negative); Ketones,Urine Negative (Negative); Leukocyte Esterase,Urine Negative (Negative); Nitrate,Urine Negative (Negative); PH,Urine 6.5 (5.0-8.5); Protein,Urine Negative (Negative); Specific Gravity, Urine <= 1.005 (1.005-1.030); Urobilinogen,Urine 0.2 EU/dl (0.2)
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
[2025-01-01] MEDS: propofoL 100 ML 1.5 MG IV (19:32)
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
[2025-01-01] MEDS: TET/DIPHTH/PERT-ADULT 0.5ML SYRINGE 0.5 ML IM (19:49)
[2025-01-01 19:50] LABS: Amphetamine/Metha Screen,Urine Negative ng/ml (<1000); Barbiturates Screen,Urine Negative ng/ml (<200)
[2025-01-01 19:51] LABS: Benzodiazepines Screen,Urine Negative ng/ml (<200)
[2025-01-01 19:53] LABS: Cocaine Screen,Urine Negative ng/ml (<300)
[2025-01-01 19:54] LABS: Methadone Screen,Urine Negative ng/ml (<300)
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
[2025-01-01 19:55] LABS: Opiate Screen,Urine Negative ng/ml (<300); Phencyclidine Screen,Urine Negative ng/ml (<25)
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
--- NOTE | 2025-01-01 20:09 | PC.NURSE ---
Called [facility] for a transfer to [facility] said they would call back momentarily
[2025-01-01] MEDS: [UNRECOGNIZED DRUG - OTHER] 5 GM IV (20:41)
[2025-01-01] MEDS: IPRATROPIUM/ALBUTEROL 3 ML NEB 9 ML IH (20:45)
[2025-01-01] MEDS: METHYLPREDNISOLONE SOD SUCC 125MG VIAL 125 MG IV (20:45)
--- NOTE | 2025-01-01 20:46 | PC.NURSE ---
[facility] 25 minutes out
[2025-01-01 20:55] LABS: Cannabinoid Screen,Urine Negative ng/ml (<50); RBC,Urine Occasional #/hpf (0-3); WBC,Urine Occasional #/hpf (0-3)
[2025-01-01 20:56] LABS: Squamous Epithelial Cell,Urine Occasional #/hpf (0-5)
[2025-01-01] MEDS: MIDAZOLAM HCL IN 0.9 % NACL/PF 50 MG/50 ML PLAST..BAG IV (21:16)
[2025-01-01] MEDS: NOREPINEPHRINE BITARTRATE/D5W 8 MG/250 ML PLAST..BAG 3.75 MG IV (21:30)
--- NOTE | 2025-01-01 21:52 | PC.NURSE ---
Emergent Blood Documentation Unit #: [id number] Start Time: 01/01/251943 End Time: 01/01/252011 Vital Signs: Pre Transfusion: BP- 136/71 HR- 111 RR- 19 Temp- 97.7 02-100% Start 1943: BP-156/73 RR-20 O2-99% HR-100 Temp-97.7 1948:BP-151-80 RR- 18 O2-99 HR- 107 Temp-97.6 1999:BP- 172/81 RR-19 O2-99% HR- 107 Temp-97.5 2012:BP- 160/83 RR- 28 O2- 99% HR-112 Temp-97.5
--- NOTE | 2025-01-01 22:08 | PC.NURSE ---
MD at bedside performing a Central Line insertion. Prop increased due to agitation
== END 2025-01-01 22:09 | disposition short-term general hospital (02) ==
PROVIDERS: Nurse Practitioner Family; Emergency Provider Emergency Medicine; PCP Family Medicine
DX: R52 Pain, unspecified (principal); J96.90 Respiratory failure, unspecified, unspecified whether with hypoxia or hypercapnia; T14.90XA Injury, unspecified, initial encounter; T31 Burns classified according to extent of body surface involved; F17.210 Nicotine dependence, cigarettes, uncomplicated; I10 Essential (primary) hypertension; E78.5 Hyperlipidemia, unspecified; I25.10 Atherosclerotic heart disease of native coronary artery without angina pectoris; F10.10 Alcohol abuse, uncomplicated; I50.9 Heart failure, unspecified; Z23 Encounter for immunization; X08.8XXA Exposure to other specified smoke, fire and flames, initial encounter
CPT/HCPCS: 51702; 71045; 72170; 80053; 80307; 81001; 82375; 82803; 85025; 86850; 90471; 90715; 96361; 96374; 96375; 99291; 99292; C1751; J2704; J2919; J7120; J7620; P9016